=== PATIENT | male | born 1930 | race Caucasian/White ===

== ENCOUNTER 2017-01-08 14:01 | Inpatient (IN) | payer MEDICARE, OTHER ==
[~2017-01-08] VITALS: Ht 180.3 cm; Wt 81.5 kg
[~2017-01-08 14:01] MED LIST: CALC-494 PO; FINA5TAB30 PO; FISH1CAP47 PO; GABA300T23 PO; LEVO150T69 PO; LYCOPENE PO; METO5TAB58 PO; OMEP20TA24 PO; PRIM50TA27 PO; PYRI60TA PO
[2017-01-08] MEDS ORDERED: GABA-336 PO (14:30)
--- NOTE | 2017-01-08 14:30 | NUR ---
PHYSICIAN VISIT DR. HWANG IN TO SEE PATIENT.
[2017-01-08] MEDS ORDERED: CALC-946 PO (14:35)
[2017-01-08] MEDS ORDERED: CA C1TAB98 PO (14:35)
[2017-01-08] MEDS ORDERED: FISH1CAP59 PO (14:35)
[2017-01-08] MEDS ORDERED: LYCO10CA3 PO (14:37)
[2017-01-08] MEDS ORDERED: SAW450CA4 PO (14:37)
--- NOTE | 2017-01-08 14:41 | ERPDOC ---
Departure Disposition Decision Date: Jan 08, 2017 Disposition Decision Time: 16:10 Disposition: 02 TO [facility] Impression Impression Impression: Primary Impression: Weakness Severity: Moderate Condition: Improved Seen By: Physician only Referrals: LEWIS DEL REAL MD (Family) Problems/Meds/Labs Reviewed?: Yes Medications reviewed and manag: Yes Follow up care ordered?: Yes Mental Status: Alert, Oriented HPI - General Medical General Chief Complaint: Weakness/Neuro Symptoms Stated Complaint: WEAKNESS Time Seen by Provider: 14:16 Source: patient (Patient presents to the ER following a possible syncopal episode or TIA at home. Patient states he was working in his garage, when he became weak, laid down on the Garage floor, and was too wek to get up. Patient states he felt weaker on his left side. He believes this all began at approx 10:30 this morning, but is unsure of the exact time. Patient arrives in ther ER feeling weak, but without focal deficits. ) Exam Limitations: no limitations HPI - General Medical Occurred At: home Onset: Changing over time Duration: 4-6 hrs Pain Scale: Now & Worst: 0/10 Severity: mild Modifying Factors: IMPROVES WITH: other, WORSE WITH: movement Associated Symptoms: malaise, DENIES: chest pain, cough, diaphoresis, fever/ chills, headaches, loss of appetite, nausea/vomiting, rash, seizure, shortness of breath, syncope, weakness Hx of Similar Symptoms: Yes Allergies: Coded Allergies: Ynnkoug-Bml-Atg Reductase Inhibitor (Verified Allergy, Unknown, LEG MUSCLE WEAKNESS, 01/08/17) rosuvastatin (Verified Allergy, Unknown, 01/08/17) Past History Past Medical History Metabolic: hypercholesterolemia, hypertension, hypothyroidism GI: GERD, ulcers Musculoskeletal: back pain, other Surgical History General: exploratory laparotomy, hernia Cardiac: pacemaker Family History Family PMH: FOUND: other Vaccines Hx Influenza Vaccination: Yes (FALL 2012) Hx Pneumococcal Vaccination: Yes (fall 2012) Social History Smoking Status: Never smoker Does patient use chewing tobac: No Second Hand Exposure: No Substance Use Type: does not use Alcohol Intake: none Marital Status: Sexuality: female partner Housing: house Household Members: spouse Current Occupational Status: retired Occupational Hazard: No Record Review Pertinent history updated: Yes Review of Systems Constitutional Constitutional: DENIES: chills, fever Eyes Lids/Accessories: DENIES: erythema, swelling ENMT Ears: DENIES: erythema, pain Balance: DENIES: ataxia, vertigo Sinuses: DENIES: congestion, rhinorrhea Mouth/Throat: DENIES: sore throat Cardiovascular Cardiac: DENIES: chest pain, dyspnea on exertion, orthopnea Rhythm/Rate: DENIES: tachycardia Pulmonary Respiratory: DENIES: cough, dyspnea, sputum GI Upper Abdomen: DENIES: nausea, pain, vomiting Lower Abdomen: DENIES: constipation, diarrhea, pain General: DENIES: dysuria Musculoskeletal General: DENIES: cramps, pain, weakness Integumentary Skin: DENIES: color change, itching, rash Neurological General: DENIES: change in strength, headache, numbness, seizures, syncope, weakness Psychiatric Psychiatric: DENIES: anxiety, depression, nervousness Hematologic/Lymphatic Hematologic/Lymphatic: DENIES: anemia Allergic/Immunological Allergic/Immunoligical: DENIES: sneezing All other Systems All Other Systems: Reviewed and Negative Physical Exam General General Nourishment: well nourished, well developed, appears stated age, adult General Body Habitus: well groomed Vitals and Pain First Documented Vital Signs Date Time Temp Pulse Resp B/P Pulse Ox O2 Delivery O2 Flow Rate FiO2 01/08/17 14:04 97.6 78 16 159/72 94 Room Air Weight: Kilograms: 80.700 Height (feet): 5 Height (inches): 11.00 Triage Pain Scale: RN VS reviewed by Provider: Yes Eyes (brief) Eyes Brief: found: EOMI, PERRL ENMT (brief) ENMT Brief: FOUND: TM clear, TM good light reflex, mucosa moist, NOT FOUND: pharnyx erythema Neck (brief) Neck: FOUND: trachea midline, NOT FOUND: adenopathy, nuchal rigidity, tenderness, tracheal deviation Respiratory (brief) Respiratory: FOUND: clear all rose, equal bilaterally Cardiovascular (brief) Cardiac: FOUND: regular rate, regular rhythm Capillary Refill: <2 sec Pulses: all distal extremities, equal, strong Abdomen (brief) Abdominal Brief: FOUND: bowel normo active x4, soft, NOT FOUND: distended, tender Lymphatic (brief) Lymphatic Brief: NOT FOUND: adenopathy Musculoskeletal (brief) Musculoskeletal Brief: NOT FOUND: spasm, tenderness Integumentary (brief) Integumentary Brief: FOUND: pink, warm Neurologic (brief) Neurological Brief: FOUND: CN w/o gross def to obs, motor-no gross deficits, sensory-no gross deficits Psychiatric (brief) Psychiatric Brief: FOUND: alert, attentive, normal affect, oriented Differential Diagnoses Considering: Acute ND, CVA, Encephalitis, Hypo/Hyperglycemia, Hypo/Hyperkalemia , Hypo/Hypernatremia, Intracranial Hemorrhage, Medication Effect, Meningitis, Metabolic, Pneumonia, TIA, UTI, Other Progress Results/Orders Orders Procedure Category Date Status Time Iv Lock (Ed Only) EDM 01/08/17 Transmitted 14:35 Bgm (Ed) EDM 01/08/17 Transmitted 14:35 Cbc W/Auto LAB 01/08/17 Complete Diff-Reflex Manual 14:35 Cmp - Comprehensive LAB 01/08/17 Complete Metabolic 14:35 Troponin I W LAB 01/08/17 Complete Hemolysis Index 14:35 INR LAB 01/08/17 Complete 14:35 PTT LAB 01/08/17 Complete 14:35 EKG EKG 01/08/17 Logged 14:35 Ct Head W/O Contrast CT 01/08/17 Resulted 14:35 Measure Vital Signs [facility] 01/08/17 In Process 14:35 Ua, Dip Wreflex LAB 01/08/17 Logged [employer] 14:35 Orthostatic Vitals [facility] 01/08/17 In Process Signs 14:35 Normal Saline (Ns) PHA 01/08/17 Complete 14:45 Chest 1 View RAD 01/08/17 Resulted Lab Results Laboratory Tests Test 01/08/17 14:39 01/08/17 15:13 01/08/17 16:04 Glucometer 100mg/dL White Blood Count 13.0T/MM3 Red Blood Count 4.91M/MM3 Hemoglobin 15.2GM/DL Hematocrit 45.6% Mean Corpuscular Volume 92.9UM3 Mean Corpuscular Hemoglobin 31.0UUG Mean Corpuscular Hemoglobin Concent 33.3GM/DL RDW Standard Deviation 42.3FL Platelet Count 161T/MM3 Mean Platelet Volume 9.3UM3 Immature Granulocyte % (Auto) 0.5% Neutrophils (%) (Auto) 82.9% Lymphocytes (%) (Auto) 9.1% Monocytes (%) (Auto) 6.6% Eosinophils (%) (Auto) 0.7% Basophils (%) (Auto) 0.2% Absolute Immature Granulocyte (auto 0.07T/MM3 Absolute Neutrophils (auto) 10.8T/MM3 Absolute Lymphocytes (auto) 1.2T/MM3 Absolute Monocytes (auto) 0.9T/MM3 Absolute Eosinophils (auto) 0.1T/MM3 Absolute Basophils (auto) 0.0T/MM3 Prothromb Time International Ratio 1.07 Activated Partial Thromboplast Time 25.6SEC Turbidity < 20 Sodium Level 147MEQ/L Potassium Level 4.2MEQ/L Chloride Level 108MEQ/L Carbon Dioxide Level 27MEQ/L Anion Gap 12MEQ/L Blood Urea Nitrogen 16.0MG/DL Creatinine 0.9MG/DL Glomerular Filtration Rate Calc 80 BUN/Creatinine Ratio 18RATIO Glucose Level 97MG/DL Calculated Osmolality 283MOSM/KG Calcium Level 10.1MG/DL Total Bilirubin 0.80MG/DL Icterus Index < 2 Aspartate Amino Transf (AST/SGOT) 72U/L Alanine Aminotransferase (ALT/SGPT) 42U/L Alkaline Phosphatase 59U/L Troponin I 0.098ng/ml Total Protein 7.7G/DL Albumin 4.0G/DL Globulin 3.7G/DL Albumin/Globulin Ratio 1.1RATIO Chemistry Specimen Hemolysis 39 Urine Collection Type Pending Urine Color Pending Urine Turbidity Pending Urine pH Pending Urine Specific [place] Pending Urine Protein Pending Urine Glucose (UA) Pending Urine Ketones Pending Urine Blood Pending Urine Nitrite Pending Urine Bilirubin Pending Urine Urobilinogen Pending Urine Leukocyte Esterase Pending Medications Current ED Medications Sodium Chloride (NS) 500 ml @ 0 mls/hr Q0M ONCE IV Last administered on 14:59; Start 01/08/17 at 14:45; Stop 01/08/17 at 14:46; Status DC Progress Progress Patient resting comfortably without focal deficits EKG EKG : Rate: 60-100 Rhythm: ventricular (Paced) QRS: other Intervals: other ST/T: other Other: other Interpreted by: signing physician EKG ScImage/Picomm EKG interpreted in ScImage/Pic: No Consult/PCP Consult/PCP : Physician Contacted: Dr Sarmiento Time Called: 16:10 Time of first response: 16:14 Type of discussion: Admit Discussion/PCP Discussion Details Discussed patient history, labs and imaging Comments Admit OBS 1/2 NS at 100ml/hr Tele Xray Xray : Reason for Exam: Weakness Xray: CXR Portable Interpretation: Normal, Reviewed Written Report CT Date CT Interpreted for [place]: Jan 08, [address] Interpreted for Stroke: 15:46 CT : Reason for Exam: Altered mental status CT: Head no contrast Interpretation: Normal, Reviewed Written Report AMY HWANG DO Jan 08, 2017 14:41
[2017-01-08] MEDS ORDERED: NORMAL SALINE 500 ML IV ONE (14:45)
--- NOTE | 2017-01-08 15:15 | NUR ---
X-RAY X-RAY AT BEDSIDE TO PERFORM PORTABLE CHEST.
[2017-01-08 15:19] LABS: BASOPHILS % (AUTO) 0.2 % (0-2); EOSINOPHILS # (AUTO) 0.1 T/MM3 (0-0.5); EOSINOPHILS % (AUTO) 0.7 % (0-4); HCT - HEMATOCRIT 45.6 % (41-53); HGB - HEMOGLOBIN 15.2 GM/DL (13.5-17.5); IMMATURE GRANULOCYTE # (AUTO) 0.07 T/MM3 (0.00-0.03); IMMATURE GRANULOCYTE % (AUTO) 0.5 % (0.0-0.5); LYMPHOCYTES # (AUTO) 1.2 T/MM3 (1-4.8); LYMPHOCYTES % (AUTO) 9.1 % (23-45); MEAN CORPUSCULAR HGB CONC(MCHC 33.3 GM/DL (31-37); MEAN CORPUSCULAR VOLUME 92.9 UM3 (80-100); MEAN PLATELET VOLUME 9.3 UM3 (9.4-12.4); MONOCYTES # (AUTO) 0.9 T/MM3 (0-0.8); MONOCYTES % (AUTO) 6.6 % (0-9.0); NEUTROPHILS #(AUTO)-ABSOLUTE 10.8 T/MM3 (1.8-7.7); NEUTROPHILS % (AUTO) 82.9 % (33-66); RED BLOOD COUNT 4.91 M/MM3 (4.50-5.90)
[2017-01-08 15:27] LABS: INR 1.07 (0.76-1.04); PROTHROMBIN TIME 11.7 SEC (9.31-12.49); PTT 25.6 SEC (24-36)
[2017-01-08 15:29] LABS: ALBUMIN/GLOBULIN RATIO 1.1 RATIO (1.1-2.2); ALKALINE PHOSPHATASE 59 U/L (38-126); ALT (SGPT) 42 U/L (21-72); ANION GAP 12 MEQ/L (5-15); AST (SGOT) 72 U/L (17-59); BUN/CREATININE RATIO 18 RATIO (6-26); CALCIUM 10.1 MG/DL (8.4-10.2); CHLORIDE 108 MEQ/L (98-107); CO2 - CARBON DIOXIDE 27 MEQ/L (22-30); CREATININE 0.9 MG/DL (0.8-1.5); GLOMERULAR FILTRATION RATE 80; GLUCOSE 97 MG/DL (75-110); POTASSIUM 4.2 MEQ/L (3.6-5); SODIUM 147 MEQ/L (134-144); TOTAL PROTEIN 7.7 G/DL (6.3-8.2)
--- NOTE | 2017-01-08 15:32 | NUR ---
CT TRANSPORTED TO CT VIA STRETCHER PER MOLDER FITTING.
--- NOTE | 2017-01-08 15:32 | DI ---
Indication: ITS.REASON: weakness PROCEDURE: CHEST 1 VIEW: Encounter: Initial Comparison: None Findings: There is some linear atelectasis or scarring in the left lung base. Heart size is normal. No lobar consolidation or pleural effusion. No mediastinal or hilar adenopathy.. There is moderate tortuosity of the descending thoracic aorta. There is moderate degenerative changes of the thoracic spine.There is a left subclavian dual lead pacemaker in place. IMPRESSION: Left basilar atelectasis and/or scarring. No definite lobar consolidation or pleural effusion.. .
--- NOTE | 2017-01-08 15:45 | NUR ---
RETURNED RETURNED FROM CT.
--- NOTE | 2017-01-08 15:50 | DI ---
Indication: ITS.REASON: altered mental status PROCEDURE: CT HEAD W/O CONTRAST: Encounter: Initial Comparison: None Technique: Axial CT images through the head were performed without contrast. Iterative Reconstruction dose reducing technique was utilized. FINDINGS: The ventricles are of normal size, shape, and contour for the patient's age. There are scattered areas of low attenuation in the white matter which most likely represent changes from chronic microvascular ischemia. The brainstem, cerebellum, and cerebral hemispheres otherwise have a normal morphology and CT attenuation. There is no evidence of midline displacement. No hemorrhage, signs of acute territorial stroke, mass effect, mass lesions, or edema is evident. The visualized portions of the skull base, midface, and calvarium demonstrate no abnormality. The paranasal sinuses are well aerated and free of significant disease. The tympanic and mastoid cavities appear normal. IMPRESSION: No evidence for intracranial mass lesion, mass effect, or midline shift. No evidence for acute cortical infarct. No intracranial hemorrhage. .
--- NOTE | 2017-01-08 16:00 | NUR ---
URINE SPECIMEN URINE SPECIMEN COLLECTED, LABELED, AND WALKED TO LAB BY THIS NURSE.
[2017-01-08] MEDS ORDERED: 1/2 NS 1,000 ML IV SCH (16:15)
--- NOTE | 2017-01-08 16:16 | NUR ---
ADMISSION CALLED [facility], MEDICAL FLOOR CHARGE FOR BED ASSIGNMENT. PATIENT TO BE ADMITTED TO ROOM 160. WOLF CAMPBELL TO TAKE REPORT AT EXTENSION [id number].
[2017-01-08 16:20] LABS: BLOOD, URINE 3+ (NEGATIVE); COLOR,URINE YELLOW (YELLOW); LEUKOCYTE ESTERASE ,URINE NEGATIVE (NEGATIVE); NITRITE,URINE NEGATIVE (NEGATIVE); UROBILINOGEN,URINE 0.2 EU/DL (NORMAL)
--- NOTE | 2017-01-08 16:20 | NUR ---
REPORT REPORT CALLED TO WOLF CAMPBELL, MEDICAL UNIT.
--- NOTE | 2017-01-08 16:25 | NUR ---
ADMISSION UPDATE HOSPITALIST BRAKE LINING FINISHER AT BEDSIDE ASSESSING PATIENT. WILL TRANSPORT PATIENT WHEN BRAKE LINING FINISHER FINISHED.
[2017-01-08 16:29] LABS: MUCUS,URINE PRESENT
[2017-01-08 16:31] LABS: BACTERIA,URINE 1+ (NEGATIVE); SQUAMOUS EPITHELIAL CELL,UR NONE SEEN; WBC,URINE 0-1 /HPF (0-5)
--- NOTE | 2017-01-08 16:40 | NUR ---
ADMIT PT ADMITTED TO ROOM 160. PT ALERT AND ORIENTED X3. TRANSFER WITH STAND PIVOT TO BED FROM CART. PT FRIENDLY AND COOPERATIVE WITH STAFF. NEURO CHECK NORMAL AT THIS TIME. EQUAL STRENGTH IN ALL EXTREMITIES. ALL SENSATIONS INTACT. NO EDEMA NOTED. EDUCATED ON HOSPITAL ENVIRONMENT. EDUCATED FAMILY HEALTH NURSE PRACTITIONER LIGHT. AT BEDSIDE
[2017-01-08 16:43] VITALS: Ht 180.3 cm; Wt 81.5 kg
[2017-01-08 16:45] VITALS: BP 195/83; PULSE 75; RESP 20; O2SAT 94
[2017-01-08 16:59] VITALS: BP 135/69; TEMP 97.6
[2017-01-08] MEDS ORDERED: MILK OF MAGNESIA 30 ML SUSP PO PRN (17:00)
[2017-01-08] MEDS ORDERED: MAG-AL + SIM LIQUID 30 ML UDC PO PRN (17:00)
[2017-01-08] MEDS ORDERED: NITROGLYCERIN 0.4 MG SUBLINGUAL TABLET SL PRN (17:00)
[2017-01-08] MEDS ORDERED: BISACODYL 10 MG SUPPOSITORY RECTALLY PRN (17:00)
[2017-01-08] MEDS ORDERED: PRN ORDERS MC (17:00)
[2017-01-08] MEDS ORDERED: ONDANSETRON 4mg/2ml INJECTION IV PRN (17:00)
--- NOTE | 2017-01-08 17:19 | HPPDOC ---
MARK MCCULLOUGH APRN 01/08/17 1646: HPI - Adult Date DATE: 01/08/17 TIME: 16:39 General Chief Complaint: Weakness History of Present Illness Nicola Austin is an 86 year old male who was working on a lawnmower, became weak and tired and believes he just laid down. He doesn't think he passed out and denies falling, but his recollection of what actually occurred is not certain. He has never had a seizure. He was not incontinent of bowel/bladder. He was down on the ground for 1.5 hours, and despite trying to get up, was unable to. He mostly rested on his left arm, and now is weak on that side. He had his annual bout of "bronchitis" now those symptoms are resolved and he denies any other recent illness. He has myasthenia gravis, but denies any difficulty breathing, dysphagia, or vision abnormalities. He has chronic leg weakness, attributed to taking crestor then lipitor. He does not take ASA because of GI bleed in 2007. His returned from work around noon, and found him on the ground. He was transferred to [facility] [place] ED. WBC was 13, Na was high at 147; UA was consistent with dehydration. He did receive 500 mL NS in the ED. Head CT was negative for acute infarct or hemorrhage. CXR showed left basilar atelectasis and/or scarring. EKG showed paced rhythm. Given concerns for stroke, the patient was admitted to observation status under the hospitalist service. Past Medical History Past Medical History Patient's Medical History: (1) Hypercholesteremia (2) Myasthenia gravis (3) Hypothyroidism (4) HTN (hypertension) (5) Essential tremor (6) Duodenal stenosis (7) Atrial fibrillation (8) Bleeding ulcer Permanent Comment: 2007 Last Edited By: Mark Mccullough on Jan 08, 2017 16:51 Surgical History Patient's Surgical History: EGD in 2007 - bleeding duodenal ulcer Pacemaker Cardioversion for a-fib Cataracts (left in 1999, right 1995) Right inguinal hernia in 1968 Colonoscopy last one in 2011, benign colon polyps Current Medications Home Meds Reported Medications Saw Sherwood Fruit (Saw Sherwood) 450 Mg Capsule, 900 MG PO HS 01/08/17 Lycopene (Lycopene) 10 Mg Capsule, 10 MG PO HS 01/08/17 Cholecalciferol (Vitamin D3) (Vitamin D3) 5,000 Unit Tablet, 5000 UNIT PO HS 01/08/17 Ca Carbonate/Vitamin D3/Vit K (Citracal Soft Chew) 1 Each Tab.chew, 1 TAB PO BID 01/08/17 Fish Oil/Dha/Epa (Fish Oil 1,200 mg Fish Oil) 1 Each Capsule, 1200 MG PO QID 01/08/17 Gabapentin (Gabapentin) 100 Mg Capsule, 100 MG PO BID 01/08/17 Finasteride (Proscar) 5 Mg Tablet, 5 MG PO HS 01/28/11 Pyridostigmine [place] (Pyridostigmine [place]) 60 Mg Tablet, 60 MG PO DAILY 08/16/09 Primidone (Primidone) 50 Mg Tablet, 50 MG PO BID 08/16/09 Omeprazole (Prilosec) 20 Mg Tablet.dr, 20 MG PO DAILY 08/16/09 Metoclopramide Hcl (Metoclopramide Hcl) 5 Mg Tablet, 5 MG PO HS 08/16/09 Levothyroxine Sodium (Levothyroxine Sodium) 150 Mcg Tablet, 150 MCG PO HS 08/16/09 Allergies: Coded Allergies: Ptwklqh-Ggz-Hqq Reductase Inhibitor (Verified Allergy, Unknown, LEG MUSCLE WEAKNESS, 01/08/17) rosuvastatin (Verified Allergy, Unknown, 01/08/17) aspirin (Verified Adverse Reaction, Unknown, 01/08/17) due to a bleeding ulcer Family History Family History: Father at age 90, unknown cause. Mother at age 50, unknown cause. Sister in her early 80s - hx of diabetes. Younger brother has back problems and has had cancer. Social History Smoking Status: Never smoker Does patient use chewing tobac: No Second Hand Exposure: No Substance Use Type: does not use Alcohol Intake: none Marital Status: Sexuality: female partner Housing: house Household Members: spouse Current Occupational Status: retired Occupational Hazard: No Advance Directives: Yes DPOA for Healthcare Only, Yes Living Will Review of Systems Constitutional: REPORTS: weakness, DENIES: appetite decrease, chills, fever Eyes Vision: DENIES: vision changes ENMT Sinuses: NOT FOUND: congestion, rhinorrhea Mouth/Throat: DENIES: change in swallowing, painful swallowing, sore throat Comments tiny abrasion to right side of tongue - pt wasn't sure what happened but he believes he bit his tongue Cardiovascular DENIES: chest pain, dyspnea on exertion Vascular: DENIES: pedal edema Pulmonary Respiratory: DENIES: cough, dyspnea GI Upper Abdomen: DENIES: nausea, pain, vomiting Lower Abdomen: DENIES: constipation, diarrhea General: DENIES: dysuria, frequency, incontinence Musculoskeletal General: DENIES: joint swelling, pain Integumentary Skin: DENIES: infections, rash Neurological General: see HPI, weakness Psychiatric Psychiatric: DENIES: depression Hematologic/Lymphatic DENIES: anemia Allergic/Immunological DENIES: frequent infections All Other Systems All Other Systems: Reviewed (remainder of 10-point ROS Neg.) Physical Exam General General Nourishment: well nourished, well developed General Body Habitus: well groomed Vital Signs Vital Signs Date Time Temp Pulse Resp B/P Pulse Ox O2 Delivery O2 Flow Rate FiO2 01/08/17 16:16 60 16 177/76 98 Room Air 01/08/17 14:04 97.6 Height (Feet): 5 Height (Inches): 11.00 Eyes Brief: FOUND: PERRL, NOT FOUND: scleral icterus ENMT Brief: NOT FOUND: mucosa moist (sligghtly dry), pharnyx erythema Neck Brief: NOT FOUND: adenopathy, nuchal rigidity Respiratory Auscultation: FOUND: normal, NOT FOUND: rales, rhonchi, wheezes Cardiovascular Auscultation: FOUND: S1, S2, regular Peripheral Pulses: 2+: Dorasalis Pedis (L), Dorsalis Pedis (R), Posterior Tibial (L), Posterior Tibial (R), Radial (L), Radial (R) Edema: 0: Anasarca, Arm (L), Arm (R), Face, Leg (L), Leg (R) Abdomen Inspection: NOT FOUND: distention Palpation: FOUND: soft, NOT FOUND: McBurney's point tender, Iqbal's sign, involuntary guarding, rebound, tender, voluntary guarding Auscultation: FOUND: normo active Lymphatic (brief) Lymphatic Brief: NOT FOUND: adenopathy Integumentary (brief) Integumentary Brief: FOUND: dry, warm Integumentary General: FOUND: dry, warm Color: FOUND: pink Neurologic (brief) Neurological Brief: FOUND: cerebellar (intact alternating fingers), cranial 2- 12 intact (grossly), motor (left deltoid, bicep and tricep 4/5 compared to 5/5 on right. +Pronator drift on left.), sensory (intact to light touch), NOT FOUND : facial droop, ptosis Comments B/L nystagmus, worse when he looked towards the left Neurologic GCS Eye Opening: (4)Spontaneous GCS Verbal: (5)Oriented GCS Motor: (6)Obeys Commands RN Documented GCS Total: 15 Psychiatric (brief) FOUND: alert, attentive, normal affect, oriented Laboratory Laboratory Tests Test 01/08/17 14:39 01/08/17 15:13 01/08/17 16:04 Glucometer 100mg/dL White Blood Count 13.0T/MM3 Red Blood Count 4.91M/MM3 Hemoglobin 15.2GM/DL Hematocrit 45.6% Mean Corpuscular Volume 92.9UM3 Mean Corpuscular Hemoglobin 31.0UUG Mean Corpuscular Hemoglobin Concent 33.3GM/DL RDW Standard Deviation 42.3FL Platelet Count 161T/MM3 Mean Platelet Volume 9.3UM3 Immature Granulocyte % (Auto) 0.5% Neutrophils (%) (Auto) 82.9% Lymphocytes (%) (Auto) 9.1% Monocytes (%) (Auto) 6.6% Eosinophils (%) (Auto) 0.7% Basophils (%) (Auto) 0.2% Absolute Immature Granulocyte (auto 0.07T/MM3 Absolute Neutrophils (auto) 10.8T/MM3 Absolute Lymphocytes (auto) 1.2T/MM3 Absolute Monocytes (auto) 0.9T/MM3 Absolute Eosinophils (auto) 0.1T/MM3 Absolute Basophils (auto) 0.0T/MM3 Prothromb Time International Ratio 1.07 Activated Partial Thromboplast Time 25.6SEC Turbidity < 20 Sodium Level 147MEQ/L Potassium Level 4.2MEQ/L Chloride Level 108MEQ/L Carbon Dioxide Level 27MEQ/L Anion Gap 12MEQ/L Blood Urea Nitrogen 16.0MG/DL Creatinine 0.9MG/DL Glomerular Filtration Rate Calc 80 BUN/Creatinine Ratio 18RATIO Glucose Level 97MG/DL Calculated Osmolality 283MOSM/KG Calcium Level 10.1MG/DL Total Bilirubin 0.80MG/DL Icterus Index < 2 Aspartate Amino Transf (AST/SGOT) 72U/L Alanine Aminotransferase (ALT/SGPT) 42U/L Alkaline Phosphatase 59U/L Troponin I 0.098ng/ml Total Protein 7.7G/DL Albumin 4.0G/DL Globulin 3.7G/DL Albumin/Globulin Ratio 1.1RATIO Chemistry Specimen Hemolysis 39 Urine Collection Type Cleancatch-midstream Urine Color Yellow Urine Turbidity Clear Urine pH 5.0 Urine Specific [place] >=1.030 Urine Protein 1+ Urine Glucose (UA) Negative Urine Ketones 1+ Urine Blood 3+ Urine Nitrite Negative Urine Bilirubin Negative Urine Urobilinogen 0.2EU/DL Urine Leukocyte Esterase Negative Urine RBC 1-3/HPF Urine WBC 0-1/HPF Urine Squamous Epithelial Cells None seen Urine Amorphous Urates Few Urine Bacteria 1+ Urine Hyaline Casts 3-5/LPF Urine Mucus Present Urine Culture Indicated Cult not indicated Assessment & Plan Problems: (1) Weakness Status: Acute Assessment & Plan: R/O stroke (2) Hypernatremia Status: Acute (3) Myasthenia gravis Status: Chronic (4) Hypercholesteremia Status: Chronic Assessment & Plan: Cannot tolerate Crestor or Lipitor - cause severe muscle weakness (5) Atrial fibrillation Status: Resolved Assessment & Plan: hx of cardioversion (6) Bleeding ulcer Status: Resolved Assessment & Plan: duodenal bleeding ulcers in 2002 and 2007 - instructed not to take ASA (7) Hypothyroidism Status: Chronic Qualifiers: Hypothyroidism type: acquired Qualified Codes: E03.9 - Hypothyroidism, unspecified (8) HTN (hypertension) Status: Chronic Qualifiers: Hypertension type: essential hypertension Qualified Codes: I10 - Essential (primary) hypertension (9) Essential tremor Status: Chronic Plan/Intensity of Service Admit to observation status under the hospitalist service. R/O stroke; other differential dx include syncope, seizure, myasthenia exacerbation - carotid dopplers, echocardiogram. MRI brain - unable to obtain ( pacemaker not compatible). Order TSH and lipid panel (though cannot tolerate statin). ASA contraindicated d/t severe hx of GI bleeding. Consult PT/OT/ST. Dehydration with hypernatremia - he received NS 500 mL in ED. Will start 1/2 NS at 100 ml/hr. Hematuria - check CK to r/o rhabdomyolysis. Consider IVIG (2g/kg over 2-5 days) for myasthenia gravis exacerbation if symptoms do not improve. Code status - he would consider DNR, but wants to think about it. Full code at this time. PCP - Dr. Godwin/Heron Corcorna. Discussed with Dr. Sarmiento. DVT Prophylaxis: SCD'S Code Status Full Code Hospital Course Summary Disclaimer The hospital course summary below is not to be considered part of the above Progress Note. Hospital Course Summary 01/08/17 Admit to observation status under the hospitalist service. R/O stroke; other differential dx include syncope, seizure, myasthenia exacerbation - carotid dopplers, echocardiogram. MRI brain - unable to obtain ( pacemaker not compatible).Order TSH and lipid panel (though cannot tolerate statin). ASA contraindicated d/t severe hx of GI bleeding. Consult PT/OT/ST. Dehydration with hypernatremia - he received NS 500 mL in ED. Will start 1/2 NS at 100 ml/hr. Hematuria - check CK to r/o rhabdomyolysis. Consider IVIG (2g/kg over 2-5 days) for myasthenia gravis exacerbation if symptoms do not improve. Code status - he would consider DNR, but wants to think about it. Full code at this time. SON SARMIENTO MD 01/08/17 1842: Past Medical History Current Medications Home Meds Reported Medications Saw [place]wood Fruit (Saw Sherwood) 450 Mg Capsule, 900 MG PO HS 01/08/17 Lycopene (Lycopene) 10 Mg Capsule, 10 MG PO HS 01/08/17 Cholecalciferol (Vitamin D3) (Vitamin D3) 5,000 Unit Tablet, 5000 UNIT PO HS 01/08/17 Ca Carbonate/Vitamin D3/Vit K (Citracal Soft Chew) 1 Each Tab.chew, 1 TAB PO BID 01/08/17 Fish Oil/Dha/Epa (Fish Oil 1,200 mg Fish Oil) 1 Each Capsule, 1200 MG PO QID 01/08/17 Gabapentin (Gabapentin) 100 Mg Capsule, 100 MG PO BID 01/08/17 Finasteride (Proscar) 5 Mg Tablet, 5 MG PO HS 01/28/11 Pyridostigmine [place] (Pyridostigmine [place]) 60 Mg Tablet, 60 MG PO DAILY 08/16/09 Primidone (Primidone) 50 Mg Tablet, 50 MG PO BID 08/16/09 Omeprazole (Prilosec) 20 Mg Tablet.dr 20 MG PO DAILY 08/16/09 Metoclopramide Hcl (Metoclopramide Hcl) 5 Mg Tablet, 5 MG PO HS 08/16/09 Levothyroxine Sodium (Levothyroxine Sodium) 150 Mcg Tablet, 150 MCG PO HS 08/16/09 Allergies: Coded Allergies: Iokpfmm-Lvx-Bxz Reductase Inhibitor (Verified Allergy, Unknown, LEG MUSCLE WEAKNESS, 01/08/17) rosuvastatin (Verified Allergy, Unknown, 01/08/17) aspirin (Verified Adverse Reaction, Unknown, 01/08/17) due to a bleeding ulcer Assessment & Plan Problems: (1) Rhabdomyolysis Status: Acute Qualifiers: Rhabdomyolysis type: traumatic Encounter type: initial encounter Qualified Codes: T79.6XXA - Traumatic ischemia of muscle, initial encounter Assessment & Plan: Secondary to being down on concrete for extended period of time. (2) Weakness Status: Acute Assessment & Plan: R/O stroke. Possible MG exacerbation. (3) Hypernatremia Status: Acute Assessment & Plan: POA (4) Myasthenia gravis Status: Chronic (5) HTN (hypertension) Status: Chronic Qualifiers: Hypertension type: essential hypertension Qualified Codes: I10 - Essential (primary) hypertension (6) Hypercholesteremia Status: Chronic Assessment & Plan: Cannot tolerate Crestor or Lipitor - cause severe muscle weakness (7) Hypothyroidism Status: Chronic Qualifiers: Hypothyroidism type: acquired Qualified Codes: E03.9 - Hypothyroidism, unspecified (8) Essential tremor Status: Chronic (9) Atrial fibrillation Status: Resolved Assessment & Plan: hx of cardioversion (10) Bleeding ulcer Status: Resolved Assessment & Plan: Hx of duodenal bleeding ulcers in 2002 and 2007 - instructed not to take ASA Hospital Course Summary Hospital Course Summary Have independently interviewed and examined pt. Chart reviewed. Case discussed with ED provider and my ATOMIC PHYSICS TEACHER. Care plan developed with my supervision; agree with above. CC: Weakness. HPI: At home, working on crabber. Laying on concrete to grease the zerks. When tried to get up, found he was too weak to get on feet. 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 return after he had been down for about 1.5 hours. Hard to get him up. Left shoulder and ab sore from attempts to get up. Not eaten anything since breakfast this morning. No nausea. No loose of bowel/bladder function. Breathing stable. No chest pain. No recent viral syndrome. Lungs: clear CV: regular AB; soft nt/nd +BS MSE: awake alert appropriate Neuro: diffuse weakness of upper ext bilaterally. Plan: OBS. IVF for hydration - with elevated CPK and Rhabdo, will change IVF to D5W with 2 amps of sodium Bicarb. MRI precluded due to pacemaker. PT/OT/Speech eval. SCD. Monitor CPK and renal function. Recheck BMP in am due to hypernatremia and rhabdo. Potentially needing IVIG if weakness not improving with hydration and normalization of CPK. MARK MCCULLOUGH ATOMIC PHYSICS TEACHER Jan 08, 2017 16:46 SON SARMIENTO MD Jan 08, 2017 18:42
[2017-01-08 17:31] VITALS: PULSE 60; RESP 16
[2017-01-08 18:11] LABS: THYROID STIM HORMONE-TSH 0.02 MIU/L (0.47-4.68)
[2017-01-08] MEDS: SODIUM BICARB IV SCH (18:35)
[2017-01-08] MEDS: D5W IV SCH (18:35)
[2017-01-08 20:00] VITALS: BP 132/62; PULSE 60; PULSE 62; RESP 18; TEMP 98; O2SAT 95
[2017-01-08] MEDS: GABAPENTIN 100 MG PO SCH (20:10)
[2017-01-08] MEDS: PRIMIDONE 50 MG PO SCH (20:10)
[2017-01-08] MEDS ORDERED: --POM--FINASTERIDE 5 MG TABLET PO SCH (22:00)
[2017-01-08] MEDS ORDERED: LEVOTHYROXINE 150 MCG PO SCH (22:00)
[2017-01-08] MEDS ORDERED: METOCLOPRAMIDE 5 MG PO SCH (22:00)
[2017-01-09] VITALS (7 sets, daily range): BP systolic 152–178; BP diastolic 67–74; PULSE 62–82; RESP 16–22; TEMP 97.5–98.3; O2SAT 93–95
[2017-01-09 02:33] LABS: LDL CHOLESTEROL,CALCULATED 172.4 (66-159); RISK FACTOR 6.8 RATIO (0-5.0); VLDL CHOLESTEROL 34.6 MG/DL (0-28)
[2017-01-09 05:14] LABS: BASOPHILS % (AUTO) 0.3 % (0-2); EOSINOPHILS # (AUTO) 0.2 T/MM3 (0-0.5); EOSINOPHILS % (AUTO) 2.4 % (0-4); HCT - HEMATOCRIT 39.4 % (41-53); IMMATURE GRANULOCYTE # (AUTO) 0.02 T/MM3 (0.00-0.03); IMMATURE GRANULOCYTE % (AUTO) 0.3 % (0.0-0.5); LYMPHOCYTES # (AUTO) 2.1 T/MM3 (1-4.8); LYMPHOCYTES % (AUTO) 26.6 % (23-45); MEAN CORPUSCULAR HGB 30.9 UUG (26-34); MEAN CORPUSCULAR VOLUME 93.6 UM3 (80-100); MEAN PLATELET VOLUME 9.1 UM3 (9.4-12.4); MONOCYTES # (AUTO) 0.6 T/MM3 (0-0.8); NEUTROPHILS #(AUTO)-ABSOLUTE 4.9 T/MM3 (1.8-7.7); NEUTROPHILS % (AUTO) 62.4 % (33-66); RED BLOOD COUNT 4.21 M/MM3 (4.50-5.90); WBC - WHITE BLOOD COUNT 7.9 T/MM3 (4.5-11.0)
[2017-01-09 05:24] LABS: ALBUMIN 3.2 G/DL (3.5-5.0); ALBUMIN/GLOBULIN RATIO 1.1 RATIO (1.1-2.2); ALKALINE PHOSPHATASE 47 U/L (38-126); ALT (SGPT) 61 U/L (21-72); ANION GAP 10 MEQ/L (5-15); AST (SGOT) 165 U/L (17-59); BUN/CREATININE RATIO 20 RATIO (6-26); CHLORIDE 102 MEQ/L (98-107); CO2 - CARBON DIOXIDE 31 MEQ/L (22-30); CREATININE 0.7 MG/DL (0.8-1.5); GLOMERULAR FILTRATION RATE 107; GLUCOSE 114 MG/DL (75-110); POTASSIUM 3.4 MEQ/L (3.6-5); SODIUM 143 MEQ/L (134-144)
--- NOTE | 2017-01-09 05:44 | NUR ---
Shift Pt awake most of the noc, has some urinary frequency and rib pain- declines pain medication. Neuro checks WNL, A/O x3.
[2017-01-09 05:58] LABS: CK - CPK 5898 U/L (55-170)
[2017-01-09] MEDS: SODIUM BICARB IV SCH (06:20)
[2017-01-09] MEDS: D5W IV SCH (06:20)
[2017-01-09] MEDS ORDERED: --POM--OMEPRAZOLE 20 MG CAPSULE PO SCH (06:30)
[2017-01-09] MEDS ORDERED: PYRIDOSTIGMINE 60 MG PO SCH (08:00)
[2017-01-09] MEDS: PRIMIDONE 50 MG PO SCH (08:19)
[2017-01-09] MEDS: GABAPENTIN 100 MG PO SCH (08:20)
--- NOTE | 2017-01-09 08:38 | DI ---
Indication: ITS.REASON: poss stroke PROCEDURE: US CAROTID DOPP COMPLETE: TECHNIQUE: Grayscale, color and duplex Doppler imaging was performed of the carotid systems bilaterally. Velocities in cm/sec - validated velocity measurements with angiographic measurements, velocity criteria are extrapolated from diameter data as defined by the Society of Radiologists in Ultrasound Consensus Conference Radiology 2003; 229;340-346. RIGHT: PSV ICA 80.5 EDV ICA 16 PSV CCA 145 EDV CCA 21 SVR 0.60 PSV ECA 199 ICA Diameter reduction 20-30% LEFT: PSV ICA 156 EDV ICA 31.8 PSV CCA 101 EDV CCA 14 SVR 0.80 PSV ECA 180 ICA Diameter reduction 50-60% The right vertebral artery is patent with cephalic flow. The left vertebral artery is patent with cephalic flow. Scattered atherosclerotic plaque in both carotid bulbs and throughout both ICAs. Common carotid intimal wall thickening bilaterally is moderate to severe. IMPRESSION: 50-60% stenosis in the left mid to distal ICA. No hemodynamically significant carotid stenosis on the right. .
--- NOTE | 2017-01-09 09:21 | STEVAL ---
Eval Subjective and History Date/Time of Eval DATE: 01/09/17 TIME: 08:50 Medical Diagnosis encephalopathy, r/o stroke Treatment Order: Assessment Orientations: Person, Place Primary Complaint: increased confusion, r/o stroke Pain: No Date of Onset of Primary Com: 01/08/17 Prior History of This Problem: No Patient's Goals: Return home Significant Past Medical Hx: Pt admitted to [facility] on 01/08/17 after developing weakness and laying on concrete floor for 1 1/2 hrs. Pt reported his left side was weak from laying on the floor. PMH: HTN, dyslipidemia, hypothyroidism, pulmonary HTN and DVT. Medical History Form Reviewed: Yes Residence Type: Private home/apartment Lives With: Spouse Caregiver Status: Yes (assists pt as needed) Prior Functional Status: Pt lived independently with his and was on a regular diet with no difficulty swallowing. Current Functional Status: Pt tolerated regular diet with set up, no s/s of aspiration. Education Subject: Diet, Swallowing Strategies Person(s) Educated: Patient Instruction Understanding Demo: Pt. verbalizes understand, Famly/Cargvr verb underst Education Comment METALLURGY LABORATORY TECHNICIAN educated patient on reasoning for evaluation. Patient was agreeable to evaluation. Subjective and History Comment: Pt was alert and cooperative during assessment. present for portion of assessment. Dysphagia Evaluation Evaluation Location: Chair Evaluation Angle: 90 Tongue Elevation: No Impairment (WFL) Tongue Lateralization: No Impairment (WFL) Tongue Protrusion: No Impairment (WFL) Tongue Retraction: No Impairment (WFL) Tongue Extension Midline: No Impairment (WFL) Labial Approximation: No Impairment (WFL) Volitional Cough: No Impairment (WFL) Palatal Elevation: No Impairment (WFL) Larynx Elevation During Swallo: Minimal Impairment Saliva Control: No Impairment (WFL) Oral Peripheral Exam Comment: Oral range of motion was within functional limits. Lip Seal: Adequate-liquid, Adequate-pudding, Adequate-solid Lingual Manipulation: Adequate-liquid (regular from a cup), Inadequate-liquid ( minimal difficulty w/straws), Adequate-pudding, Adequate-solid Chewing: Inadequate-solid (mild) Oral cavity clear post swallow: Adequate-liquid, Adequate-pudding, Adequate- solid Swallow initiated w/o delay: Adequate-liquid, Adequate-pudding, Adequate-solid Multiple swallows not needed: Adequate-liquid, Adequate-pudding, Adequate-solid Voice clear&dry post swallow: Adequate-liquid, Adequate-pudding, Adequate- solid (soft but dry) No cough/throat clear: Adequate-liquid, Adequate-pudding, Adequate-solid Assessment/Plan of Care Speech Therapy Impressions: Pt fed himself a regular diet with regular liquids with assistance opening packages, holding cup. Small cough noted after drinking thin liquids from a straw. Pt does not use straws at home. Mild tremor of upper extremities noted during evaluation. reported that the tremors have been present for a long time but vary in intensity. Pt verbalized needs and explained how he came to be in the hospital. Speech was soft but intelligible and appropriate to topic. Mild processing delay noted. Pt's reported that this if the norm for Mr. Austin. Recommend soft diet with chopped meat and regular liquid diet with swallow precautions. ST Treatment Plan: Swallow Precautions, Modified Diet, Evaluation Only ST Treatment Plan Frequency: N/A Treatment Plan Duration: N/A Recommended Diet: Soft diet/chopped meat and regular liquids Date of Visit 01/09/17 Time Visit Began: 08:30 Time Visit Ended: 09:05 ST Assess/Plan of Care: ST Treatment Charge: Swallow Eval Minutes of Individual Therapy: 35 AYESHA RAJAN MS CCC-METALLURGY LABORATORY TECHNICIAN Jan 09, 2017 08:53
--- NOTE | 2017-01-09 09:22 | NUR ---
Pt was seen for dysphagia evaluation. He fed himself regular diet and drank thin liquids from a cup with no s/s of aspiration. Speech was soft but intelligible and appropriate to topic. FINANCIAL DIRECTOR recommended soft diet/chopped meat and thin liquids with no straws as a swallow precaution. No skilled speech recommended at this time.
--- NOTE | 2017-01-09 11:50 | NUR ---
CM CM IN TO VISIT WITH PT AND FAMILY. CM EXPLAINED ROLE TO PT AND FAMILY CONTACT INFORMATION PROVIDED. PT AND FAMILY DENY NEEDS AT HOME AND ARE AWARE TO CONTACT CM SHOULD NEEDS ARISE.
--- NOTE | 2017-01-09 12:05 | ECHOF ---
DATE OF SERVICE 01/08/2017 INDICATION Stroke. TECHNICAL QUALITY Technically good 2-D, M-mode, Doppler echocardiographic images were submitted for interpretation. FINDINGS 1. CARDIAC CHAMBERS. All cardiac chamber measurements are normal. Aortic root diameter is normal. Left atrium appears slightly prominent with a measurement of 3.9 cm - falls within upper-normal range. RV size and contractility appear normal. Pacemaker leads are seen in the right heart, appear to be unremarkable. 2. LEFT VENTRICLE. Analysis reveals borderline concentric LVH. Wall motion analysis is normal. Systolic function is normal. Ejection fraction is normal, about 60%. Diastolic dysfunction, grade I/IV, is present. Septal hypokinesis is present. Appears to be related to ventricular pacing. 3. VALVES. Aortic valve exhibits mild sclerosis. Valve opening is normal. Mitral valve exhibits annular calcification present and leaflet sclerosis. Valve excursion is normal. Tricuspid valve structure and motion appear normal with normal valve excursion. 4. DOPPLER. Shows mild to moderate aortic regurgitation, trace regurgitation involving mitral, tricuspid and pulmonic valves, none of hemodynamic significance. 5. No evidence of pericardial effusion, intracardiac masses, thrombi, vegetations or demonstrable shunts. 6. Normal central venous pressure. 7. Systolic PA pressure estimated to be normal. IMPRESSION 1. Normal cardiac chamber size. 2. Normal LV systolic function, EF of 60% with borderline LVH and mild diastolic dysfunction. 3. Aortic valve sclerosis with eccentric aortic regurgitation (2+). 3. Mitral valve sclerosis and annular calcification. 4. No evidence of intracardiac masses, thrombi, vegetations or shunts. 5. Patient is in sinus rhythm and appears to be ventricular paced throughout the study. [facility]
--- NOTE | 2017-01-09 12:57 | PNPDOC ---
Subjective Date DATE: 01/09/17 TIME: 12:45 Subjective The patient was seen today accompanied by his . He states that he was fixing his lawnmower yesterday and was on the ground and was starting to get up and then at some point lost consciousness. He does not think he really fell because he was already on the ground. He did not have loss of bowel or bowel bladder function. He states he was on the ground for 1-2 hours and was not able to get up he cuts his legs felt too weak. He states his legs are chronically weak secondary to myasthenia gravis and secondary to muscle weakness from statin use. He also stated that his left arm was painful and weak yesterday. Today he states his arm on the left is a little painful when he moves it but he doesn't feel weak in his arm today. He states his legs are feeling stronger than yesterday but not back to normal. He denies any headache from his possible fall. He denies any chest pain or palpitations. He denied having any fevers, chills or sweats recently. He denied any problems with upper respiratory infection, diarrhea or dysuria. He denies any numbness or tingling. He denies any confusion yesterday or today. He denied any difficulties with speech or swallowing. He denied any visual changes. He has never had a seizure. He is eating and drinking well today. He has a good appetite. He is urinating frequently with the IV fluids. He did get up and walk in the halls with physical therapy and a walker today. He states sometimes he uses a cane at home but usually does not need an assistive device. He states he does not see a neurologist regarding his myasthenia gravis. He does not want a neurologist. He has only been on pyridostigmine but has not used IVIG in the past. He states he sees Dr. Timmy Raymundo for cardiology care and has a pacemaker. He states his pacemaker was checked recently and was functioning well. The patient denied any palpitations yesterday. He denies any chest pains. States that when he gets up too quickly he does feel lightheaded but does not recall if that occurred yesterday. Objective Vital Signs Vital signs Vital Signs Date Time Temp Pulse Resp B/P Pulse Ox O2 Delivery O2 Flow Rate FiO2 01/09/17 07:54 97.5 62 18 152/70 93 Room Air I&O cumulative 3243/800+4 incontinent voids GEN-alert, oriented 3, no acute distress HEENT-sclera anicteric, pupils are equal round and reactive, oropharynx is moist NECK-supple, carotids are silent CV-regular rate and rhythm CHEST-clear to auscultation bilaterally ABD-left, nontender, nondistended with positive bowel sounds -no Wiggins EXT-no edema, SCDs are on NEURO-cranial nerves II through XII are grossly intact, motor strength is equal and 4+ in the upper extremities and equal and 3+ to 4 in the lower extremities. Speech is fluent and without dysarthria. He does clear his throat frequently. SKIN-warm and dry and without rashes Height (Feet): 5 Height (Inches): 11.00 Weight (Kilograms): 80.500 Laboratory Laboratory Item Value Date Time Total Creatine Kinase 5898 U/L H 01/09/17 0446 Triglycerides Level 173 MG/DL H 01/08/17 1513 Cholesterol Level 243 MG/DL H 01/08/17 1513 LDL Cholesterol, Calculated 172.4 H 01/08/17 1513 VLDL Cholesterol 34.6 MG/DL H 01/08/17 1513 HDL Cholesterol Direct 36 MG/DL L 01/08/17 1513 Cholesterol/HDL Ratio 6.8 RATIO H 01/08/17 1513 Thyroid Stimulating Hormone (TSH) 0.02 MIU/L L 01/08/17 1513 Total Creatine Kinase 1310 U/L H 01/08/17 1513 Troponin I 0.070 ng/ml 01/09/17 0446 Troponin I 0.099 ng/ml 01/08/17 2256 Troponin I 0.098 ng/ml 01/08/17 1513 Laboratory Tests 01/08/17 15:13 01/09/17 04:46 Laboratory Tests 01/08/17 15:13 01/09/17 04:[address] head yesterday shows no acute findings Carotid Doppler shows a 50-60% stenosis of the left mid to distal internal carotid artery Echocardiogram IMPRESSION 1. Normal cardiac chamber size. 2. Normal LV systolic function, EF of 60% with borderline LVH and mild diastolic dysfunction. 3. Aortic valve sclerosis with eccentric aortic regurgitation (2+). 3. Mitral valve sclerosis and annular calcification. 4. No evidence of intracardiac masses, thrombi, vegetations or shunts. 5. Patient is in sinus rhythm and appears to be ventricular paced throughout the study. Chest x-ray yesterday shows left basilar infiltrate versus atelectasis Assessment & Plan Problems: (1) Rhabdomyolysis Status: Acute Qualifiers: Rhabdomyolysis type: traumatic Encounter type: initial encounter Qualified Codes: T79.6XXA - Traumatic ischemia of muscle, initial encounter Assessment & Plan: Secondary to being down on concrete for extended period of time. (2) Weakness Status: Acute Assessment & Plan: R/O stroke. Possible MG exacerbation. (3) Hypernatremia Status: Acute Assessment & Plan: POA (4) Myasthenia gravis Status: Chronic (5) HTN (hypertension) Status: Chronic Qualifiers: Hypertension type: essential hypertension Qualified Codes: I10 - Essential (primary) hypertension (6) Hypercholesteremia Status: Chronic Assessment & Plan: Cannot tolerate Crestor or Lipitor - cause severe muscle weakness (7) Hypothyroidism Status: Chronic Qualifiers: Hypothyroidism type: acquired Qualified Codes: E03.9 - Hypothyroidism, unspecified (8) Essential tremor Status: Chronic (9) Atrial fibrillation Status: Resolved Assessment & Plan: hx of cardioversion (10) Bleeding ulcer Status: Resolved Assessment & Plan: Hx of duodenal bleeding ulcers in 2002 and 2007 - instructed not to take ASA Plan/Intensity of Service Impression Generalized Weakness and weakness of left upper extremity of uncertain etiology- possible ischemic stroke that is improving, versus exacerbation of myasthenia gravis, versus dehydration versus other-overall, weakness is improving Rhabdomyolysis likely secondary to the patient's prolonged time on the cement- continue IV fluids, recheck CPK now and in the morning. Recheck renal panel today. Loss of consciousness-uncertain etiology. Cannot rule out seizure although unlikely since he was not incontinent and did not bite his tongue. Possibly secondary to dehydration versus orthostatic hypotension versus arrhythmia. On telemetry he has had no arrhythmias noted. Aortic regurgitation on echo Myasthenia gravis Chronic leg weakness from statin use Atherosclerosis left internal carotid artery Hyperlipidemia Hypertension History of hypothyroidism with overly suppressed TSH-we will decrease Synthroid Hypernatremia-resolved Plan Regarding rhabdomyolysis, CPK is now trending down and is 5000. Bicarbonate level is elevated at 32. We'll change IV fluids to normal saline and decreased to 75 ML's per hour. Recheck CPK and renal function tomorrow. Replace potassium orally Continue to monitor on telemetry Continue PT and OT Consider initiation of Plavix for possible stroke No statin or aspirin because of history of intolerance to statin with muscle weakness and GI bleed with aspirin Decrease Synthroid due to low TSH Regarding carotid atherosclerosis, would recommend follow-up as an outpatient. He cannot take a statin due to severe muscle weakness. DVT Prophylaxis: SCD'S Code Status Full Code Hospital Course Summary Disclaimer The hospital course summary below is not to be considered part of the above Progress Note. Hospital Course Summary Have independently interviewed and examined pt. Chart reviewed. Case discussed with ED provider and my CRUISE COORDINATOR. Care plan developed with my supervision; agree with above. CC: Weakness. 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 Laying on concrete to grease the zerks. When tried to get up, found he was too weak to get on feet. 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 return after he had been down for about 1.5 hours. Hard to get him up. Left shoulder and ab sore from attempts to get up. Not eaten anything since breakfast this morning. No nausea. No loose of bowel/bladder function. Breathing stable. No chest pain. No recent viral syndrome. Lungs: clear CV: regular AB; soft nt/nd +BS MSE: awake alert appropriate Neuro: diffuse weakness of upper ext bilaterally. Plan: OBS. IVF for hydration - with elevated CPK and Rhabdo, will change IVF to D5W with 2 amps of sodium Bicarb. MRI precluded due to pacemaker. PT/OT/Speech eval. SCD. Monitor CPK and renal function. Recheck BMP in am due to hypernatremia and rhabdo. Potentially needing IVIG if weakness not improving with hydration and normalization of CPK. JU OBRIEN MD Jan 09, 2017 12:50
[2017-01-09 13:42] LABS: ALBUMIN 3.4 G/DL (3.5-5.0); ANION GAP 10 MEQ/L (5-15); BUN/CREATININE RATIO 15 RATIO (6-26); CHLORIDE 102 MEQ/L (98-107); CO2 - CARBON DIOXIDE 32 MEQ/L (22-30); CREATININE 0.8 MG/DL (0.8-1.5); GLOMERULAR FILTRATION RATE 92; GLUCOSE 127 MG/DL (75-110); PHOSPHORUS 2.9 MG/DL (2.5-4.5); POTASSIUM 3.5 MEQ/L (3.6-5); SODIUM 144 MEQ/L (134-144)
[2017-01-09 13:48] LABS: CK - CPK 5000 U/L (55-170)
[2017-01-09] MEDS: NORMAL SALINE 1,000 ML IV SCH (14:52)
--- NOTE | 2017-01-09 18:24 | NUR ---
SHIFT SUMMARY PT IS BACK IN BED AT THIS TIME. PT IS ALERT AND ORIENTED X3. VS CHARTED. PT IS ON RA. DENIED SOA. PT GETS UP WITH X1 ASSIST, WALKER AND GAIT BELT. PT GOT UP TO CHAIR FOR EVERY MEAL TODAY. PT AMBULATE A COUPLE TIMES IN THE DEL REAL. PT HAS A ADEQUATE PO INTAKE AND URINE OUTPUT. CALL LIGHT IS WITHIN REACH.
[2017-01-09] MEDS: GABAPENTIN 100 MG CAPSULE PO SCH (21:00)
[2017-01-09] MEDS: METOCLOPRAMIDE 5mg TABLET PO SCH (21:00)
[2017-01-09] MEDS: PRIMIDONE 50 MG TABLET PO SCH (21:19)
[2017-01-09] MEDS: LEVOTHYROXINE 125 MCG TABLET PO SCH (21:20)
[2017-01-09] MEDS: FINASTERIDE 5 MG TABLET PO SCH (21:21)
[2017-01-09] MEDS: ACETAMINOPHEN 325 MG TABLET PO PRN (21:34)
[2017-01-10] VITALS (9 sets, daily range): BP systolic 134–199; BP diastolic 66–86; PULSE 60–80; RESP 18–20; TEMP 97.5–98.2; O2SAT 90–96
[2017-01-10] MEDS: NORMAL SALINE 1,000 ML IV SCH (04:05)
[2017-01-10 04:58] LABS: BLOOD, URINE NEGATIVE (NEGATIVE); COLOR,URINE YELLOW (YELLOW); LEUKOCYTE ESTERASE ,URINE NEGATIVE (NEGATIVE); NITRITE,URINE NEGATIVE (NEGATIVE); UROBILINOGEN,URINE 0.2 EU/DL (NORMAL)
--- NOTE | 2017-01-10 05:28 | NUR ---
UA CLEAN HAT PLACED IN THE TOILET. PT UP TO THE BATHROOM VOIDS WITHOUT DIFFICULT. URINE COLLECTED FOR UA ORDER AND TAKEN TO LAB.
[2017-01-10 05:58] LABS: BASOPHILS % (AUTO) 0.4 % (0-2); EOSINOPHILS # (AUTO) 0.3 T/MM3 (0-0.5); EOSINOPHILS % (AUTO) 4.9 % (0-4); HCT - HEMATOCRIT 37.3 % (41-53); HGB - HEMOGLOBIN 12.1 GM/DL (13.5-17.5); IMMATURE GRANULOCYTE # (AUTO) 0.01 T/MM3 (0.00-0.03); IMMATURE GRANULOCYTE % (AUTO) 0.2 % (0.0-0.5); LYMPHOCYTES # (AUTO) 1.7 T/MM3 (1-4.8); LYMPHOCYTES % (AUTO) 30.6 % (23-45); MEAN CORPUSCULAR HGB 30.9 UUG (26-34); MEAN CORPUSCULAR HGB CONC(MCHC 32.4 GM/DL (31-37); MEAN CORPUSCULAR VOLUME 95.2 UM3 (80-100); MEAN PLATELET VOLUME 9.3 UM3 (9.4-12.4); MONOCYTES # (AUTO) 0.4 T/MM3 (0-0.8); MONOCYTES % (AUTO) 7.4 % (0-9.0); NEUTROPHILS #(AUTO)-ABSOLUTE 3.1 T/MM3 (1.8-7.7); NEUTROPHILS % (AUTO) 56.5 % (33-66); RED BLOOD COUNT 3.92 M/MM3 (4.50-5.90); WBC - WHITE BLOOD COUNT 5.5 T/MM3 (4.5-11.0)
[2017-01-10 06:02] LABS: ALBUMIN 2.9 G/DL (3.5-5.0); ALKALINE PHOSPHATASE 44 U/L (38-126); ALT (SGPT) 56 U/L (21-72); ANION GAP 7 MEQ/L (5-15); AST (SGOT) 124 U/L (17-59); BUN/CREATININE RATIO 14 RATIO (6-26); CALCIUM 8.6 MG/DL (8.4-10.2); CHLORIDE 107 MEQ/L (98-107); CO2 - CARBON DIOXIDE 31 MEQ/L (22-30); CREATININE 0.7 MG/DL (0.8-1.5); GLOMERULAR FILTRATION RATE 107; GLUCOSE 99 MG/DL (75-110); POTASSIUM 3.4 MEQ/L (3.6-5); SODIUM 145 MEQ/L (134-144); TOTAL PROTEIN 5.7 G/DL (6.3-8.2)
[2017-01-10 06:10] LABS: CK - CPK 2965 U/L (55-170)
[2017-01-10] MEDS: OMEPRAZOLE 20 MG CAPSULE PO SCH (06:10)
[2017-01-10] MEDS: PYRIDOSTIGMINE 60 MG TABLET PO SCH (08:08)
[2017-01-10] MEDS: GABAPENTIN 100 MG CAPSULE PO SCH ×2 (08:08→21:07)
[2017-01-10] MEDS: PRIMIDONE 50 MG TABLET PO SCH ×2 (08:08→21:07)
[2017-01-10] MEDS ORDERED: POTASSIUM CHLORIDE 20 MEQ TABLET PO ONE (09:00)
[2017-01-10] MEDS ORDERED: METO50TA5 PO (14:33)
--- NOTE | 2017-01-10 14:42 | CONSPD ---
Consultation Info Date DATE: 01/10/17 TIME: 14:12 Reason for Consultation: cardiac evaluation HPI - Adult Date DATE: 01/10/17 TIME: 14:12 General Date of Admission Date of Admission: Jan 09, 2017 at 11:30 Chief Complaint: Weakness History of Present Illness 86 yo wm well known to me . 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 He tried to turn on his side w/o success . he waited about 1.5 hrs until his came back from work an dgot him help. He denies and warning symptoms, no dizziness ,palptations or CP. denies dyspnea on exertion. tehre was some concern about a possible stroke /TIA but he denies otherwise any sx of paresthisa speech or visual difficulties or a new weakness. He has chrnic leh weakness thought to be possible [id number] to Statin Rx ,used to be on Crestor and Lipitor. he had CT ob brain ,ehcocardiogram and B carotid doppler results of which were reviewed in detail. 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 PPM interrogation done at my request showed NL PPM Fx and no recorded arrythmias. he apperntly has h/o afib with GI bleed on warfarin had to be stopped yrs ago. was also asked to avoid ASA . He denies any hematochezia or melena, N/V. NL appetite. has had a fall a month ago due to loss of balance. He gets around usisng a cane . he walked today w RN ussing his walker w/o angina, dyspnea or dizziness. he s also been treated with IVF w Bicarb for rhabdo.His appetite and fluid intake NL per RN. Past Medical History Past Medical History Metabolic: hypercholesterolemia, hypertension, hypothyroidism GI: GERD, ulcers Musculoskeletal: back pain, other Surgical History General: exploratory laparotomy, hernia Cardiac: pacemaker Current Medications Home Meds Reported Medications Metoprolol Tartrate (Metoprolol Tartrate) 50 Mg Tablet, 25 MG PO BID, #30 TAB Take 1/2 tablet, by mouth, EVERY MORNING AND EVERY EVENING 01/10/17 Saw [place] Fruit (Saw [place]) 450 Mg Capsule, 900 MG PO HS 01/08/17 Lycopene (Lycopene) 10 Mg Capsule, 10 MG PO HS 01/08/17 Cholecalciferol (Vitamin D3) (Vitamin D3) 5,000 Unit Tablet, 5000 UNIT PO HS 01/08/17 Ca Carbonate/Vitamin D3/Vit K (Citracal Soft Chew) 1 Each Tab.chew, 1 TAB PO BID 01/08/17 Fish Oil/Dha/Epa (Fish Oil 1,200 mg Fish Oil) 1 Each Capsule, 1200 MG PO QID 01/08/17 Gabapentin (Gabapentin) 100 Mg Capsule, 100 MG PO BID 01/08/17 Finasteride (Proscar) 5 Mg Tablet, 5 MG PO HS 01/28/11 Pyridostigmine Centre (Pyridostigmine Centre) 60 Mg Tablet, 60 MG PO DAILY 08/16/09 Primidone (Primidone) 50 Mg Tablet, 50 MG PO BID 08/16/09 Omeprazole (Prilosec) 20 Mg Tablet.dr, 20 MG PO DAILY 08/16/09 Metoclopramide Hcl (Metoclopramide Hcl) 5 Mg Tablet, 5 MG PO HS 08/16/09 Levothyroxine Sodium (Levothyroxine Sodium) 150 Mcg Tablet, 150 MCG PO HS 08/16/09 Allergies: Coded Allergies: Mwksayk-Cmv-Gvs Reductase Inhibitor (Verified Allergy, Unknown, LEG MUSCLE WEAKNESS, 01/08/17) rosuvastatin (Verified Allergy, Unknown, 01/08/17) aspirin (Verified Adverse Reaction, Unknown, 01/08/17) due to a bleeding ulcer Family History FOUND: other Vaccines JUN 2016January Yes Social History Smoking Status: Never smoker Does patient use chewing tobac: No Second Hand Exposure: No Substance Use Type: does not use Alcohol Intake: none Marital Status: Sexuality: female partner Housing: house Household Members: spouse Current Occupational Status: retired Occupational Hazard: No Advance Directives: Yes DPOA for Healthcare Only, Yes Living Will Review of Systems Constitutional: DENIES: appetite decrease, chills, dizziness, fatigue, fever, weight gain, weight loss Eyes General: DENIES: erythema Vision: DENIES: blurring, double vision, loss of visual rose ENMT Balance: DENIES: ataxia, falling to one side, vertigo Nose: NOT FOUND: nosebleeds Mouth/Throat: DENIES: change in swallowing Cardiovascular DENIES: chest pain, dyspnea on exertion, orthopnea, paroxysmal nocturnal dysp Vascular: DENIES: pedal edema, unilateral swelling Pulmonary Respiratory: DENIES: cough, dyspnea, pleuritic chest pain, sputum, tachypnea GI Upper Abdomen: DENIES: food intolerances, heartburn/indigestion, hematemesis, nausea, vomiting Lower Abdomen: DENIES: blood in stool, diarrhea, melena General: hematuria (apperently microscopic hematuria resolved ,spontaneously no gross hematuria. ) Musculoskeletal General: other, DENIES: cramps, joint swelling Integumentary Skin: DENIES: color change Neurological General: poor coordination, DENIES: aphasia, ataxia, blackouts, dysarthria, dysesthesia, memory disturbances, seizures, vertigo Psychiatric Psychiatric: DENIES: depression, memory impairment, nervousness Endocrine DENIES: heat/cold intolerance Hematologic/Lymphatic DENIES: anemia Allergic/Immunological DENIES: allergic reactions, frequent infections Physical Exam General General Nourishment: well nourished, well developed, apparent age, adult Vital Signs Vital Signs Date Time Temp Pulse Resp B/P Pulse Ox O2 Delivery O2 Flow Rate FiO2 01/10/17 08:11 60 163/69 01/10/17 07:27 97.5 20 95 Room Air Height (Feet): 5 Height (Inches): 11.00 Telemetry Rhythm: Sinus Rhythm, Vpaced, Apaced Eyes Brief: FOUND: EOMI, PERRL, NOT FOUND: trauma ENMT Brief: FOUND: mucosa moist Neck Brief: FOUND: other (equal carotid upstrokes), NOT FOUND: JVD, carotid bruits Respiratory Brief: FOUND: equal bilaterally, other (few ronchi/slightl coarse BS in bases), NOT FOUND: rales, wheezes Cardiovascular (brief) Cardiac Brief: FOUND: murmur (1/6 TASAI no AI m.), regular rate, regular rhythm, NOT FOUND: pedal edema, peripheral edema Capillary Refill: <2 sec Abdomen (brief) Abdominal Brief: FOUND: BS normo active x4, soft, NOT FOUND: distended, tender (brief) Male Brief: NOT FOUND: deformity Lymphatic (brief) Lymphatic Brief: NOT FOUND: adenopathy, lymphedema Musculoskeletal (brief) Musculoskeletal Brief: NOT FOUND: deformity, loss of motion Integumentary (brief) Integumentary Brief: FOUND: dry, other (NL PPM scar x2 ( including battery replacement)), pink, warm Neurologic (brief) Neurological Brief: FOUND: cranial 2-12 intact, motor, sensory, NOT FOUND: facial droop, ptosis Neurologic RN Documented GCS Eye Opening: (4)Spontaneous Verbal: (5)Oriented Motor: (6)Obeys Commands Total: Psychiatric (brief) FOUND: alert, attentive, normal affect, oriented Psychiatric Psychiatric General: FOUND: affect, judgment, mood Attitude: FOUND: cooperative Laboratory Laboratory Tests Test 01/08/17 14:39 01/08/17 15:13 01/08/17 16:04 01/08/17 22:56 Glucometer 100mg/dL White Blood Count 13.0T/MM3 Red Blood Count 4.91M/MM3 Hemoglobin 15.2GM/DL Hematocrit 45.6% Mean Corpuscular Volume 92.9UM3 Mean Corpuscular Hemoglobin 31.0UUG Mean Corpuscular Hemoglobin Concent 33.3GM/DL RDW Standard Deviation 42.3FL Platelet Count 161T/MM3 Mean Platelet Volume 9.3UM3 Immature Granulocyte % (Auto) 0.5% Neutrophils (%) (Auto) 82.9% Lymphocytes (%) (Auto) 9.1% Monocytes (%) (Auto) 6.6% Eosinophils (%) (Auto) 0.7% Basophils (%) (Auto) 0.2% Absolute Immature Granulocyte (auto 0.07T/MM3 Absolute Neutrophils (auto) 10.8T/MM3 Absolute Lymphocytes (auto) 1.2T/MM3 Absolute Monocytes (auto) 0.9T/MM3 Absolute Eosinophils (auto) 0.1T/MM3 Absolute Basophils (auto) 0.0T/MM3 Prothromb Time International Ratio 1.07 Activated Partial Thromboplast Time 25.6SEC Turbidity < 20 Sodium Level 147MEQ/L Potassium Level 4.2MEQ/L Chloride Level 108MEQ/L Carbon Dioxide Level 27MEQ/L Anion Gap 12MEQ/L Blood Urea Nitrogen 16.0MG/DL Creatinine 0.9MG/DL Glomerular Filtration Rate Calc 80 BUN/Creatinine Ratio 18RATIO Glucose Level 97MG/DL Calculated Osmolality 283MOSM/KG Calcium Level 10.1MG/DL Total Bilirubin 0.80MG/DL Icterus Index < 2 Aspartate Amino Transf (AST/SGOT) 72U/L Alanine Aminotransferase (ALT/SGPT) 42U/L Alkaline Phosphatase 59U/L Total Creatine Kinase 1310U/L Troponin I 0.098ng/ml 0.099ng/ml Total Protein 7.7G/DL Albumin 4.0G/DL Globulin 3.7G/DL Albumin/Globulin Ratio 1.1RATIO Triglycerides Level 173MG/DL Cholesterol Level 243MG/DL LDL Cholesterol, Calculated 172.4 VLDL Cholesterol 34.6MG/DL HDL Cholesterol Direct 36MG/DL Cholesterol/HDL Ratio 6.8RATIO Thyroid Stimulating Hormone (TSH) 0.02MIU/L Chemistry Specimen Hemolysis 39 < 15 Urine Collection Type Cleancatch-midstream Urine Color Yellow Urine Turbidity Clear Urine pH 5.0 Urine Specific Thomson >=1.030 Urine Protein 1+ Urine Glucose (UA) Negative Urine Ketones 1+ Urine Blood 3+ Urine Nitrite Negative Urine Bilirubin Negative Urine Urobilinogen 0.2EU/DL Urine Leukocyte Esterase Negative Urine RBC 1-3/HPF Urine WBC 0-1/HPF Urine Squamous Epithelial Cells None seen Urine Amorphous Urates Few Urine Bacteria 1+ Urine Hyaline Casts 3-5/LPF Urine Mucus Present Urine Culture Indicated Cult not indicated Test 01/09/17 04:46 01/09/17 12:54 01/10/17 04:08 01/10/17 05:22 White Blood Count 7.9T/MM3 5.5T/MM3 Red Blood Count 4.21M/MM3 3.92M/MM3 Hemoglobin 13.0GM/DL 12.1GM/DL Hematocrit 39.4% 37.3% Mean Corpuscular Volume 93.6UM3 95.2UM3 Mean Corpuscular Hemoglobin 30.9UUG 30.9UUG Mean Corpuscular Hemoglobin Concent 33.0GM/DL 32.4GM/DL RDW Standard Deviation 42.4FL 43.3FL Platelet Count 169T/MM3 159T/MM3 Mean Platelet Volume 9.1UM3 9.3UM3 Immature Granulocyte % (Auto) 0.3% 0.2% Neutrophils (%) (Auto) 62.4% 56.5% Lymphocytes (%) (Auto) 26.6% 30.6% Monocytes (%) (Auto) 8.0% 7.4% Eosinophils (%) (Auto) 2.4% 4.9% Basophils (%) (Auto) 0.3% 0.4% Absolute Immature Granulocyte (auto 0.02T/MM3 0.01T/MM3 Absolute Neutrophils (auto) 4.9T/MM3 3.1T/MM3 Absolute Lymphocytes (auto) 2.1T/MM3 1.7T/MM3 Absolute Monocytes (auto) 0.6T/MM3 0.4T/MM3 Absolute Eosinophils (auto) 0.2T/MM3 0.3T/MM3 Absolute Basophils (auto) 0.0T/MM3 0.0T/MM3 Turbidity < 20 < 20 < 20 Sodium Level 143MEQ/L 144MEQ/L 145MEQ/L Potassium Level 3.4MEQ/L 3.5MEQ/L 3.4MEQ/L Chloride Level 102MEQ/L 102MEQ/L 107MEQ/L Carbon Dioxide Level 31MEQ/L 32MEQ/L 31MEQ/L Anion Gap 10MEQ/L 10MEQ/L 7MEQ/L Blood Urea Nitrogen 14.0MG/DL 12.0MG/DL 10.0MG/DL Creatinine 0.7MG/DL 0.8MG/DL 0.7MG/DL Glomerular Filtration Rate Calc 107 92 107 BUN/Creatinine Ratio 20RATIO 15RATIO 14RATIO Glucose Level 114MG/DL 127MG/DL 99MG/DL Calculated Osmolality 277MOSM/KG 279MOSM/KG 278MOSM/KG Calcium Level 9.0MG/DL 9.0MG/DL 8.6MG/DL Total Bilirubin 0.90MG/DL 0.70MG/DL Icterus Index < 2 < 2 < 2 Aspartate Amino Transf (AST/SGOT) 165U/L 124U/L Alanine Aminotransferase (ALT/SGPT) 61U/L 56U/L Alkaline Phosphatase 47U/L 44U/L Total Creatine Kinase 5898U/L 5000U/L 2965U/L Troponin I 0.070ng/ml Total Protein 6.0G/DL 5.7G/DL Albumin 3.2G/DL 3.4G/DL 2.9G/DL Globulin 2.8G/DL 2.8G/DL Albumin/Globulin Ratio 1.1RATIO 1.0RATIO Chemistry Specimen Hemolysis < 15 < 15 < 15 Phosphorus Level 2.9MG/DL Urine Collection Type Voided-not cc-midstr Urine Color Yellow Urine Turbidity Clear Urine pH 6.0 Urine Specific Thomson 1.015 Urine Protein Negative Urine Glucose (UA) Negative Urine Ketones Negative Urine Blood Negative Urine Nitrite Negative Urine Bilirubin Negative Urine Urobilinogen 0.2EU/DL Urine Leukocyte Esterase Negative EKG INSULATION SUPERVISOR PPM interogation NL . 100% WELFARE OFFICER. >80 3% .NL impedenace .0% AF.no arrythmia. Nl battery V. Radiology CXR atelectasis . carotid ndoppler 50-60% mid and distal stnosis echo NL LVFX 2+AI see full reports head ct neg. Impression/Recommendation Recommendation CHB and SB with NL PPM FX carotid arterey stenosis asymptomatic significant hypercholetsrolemia and hi TG (mixed) w h/o statin induced myopathy rhabdo due to trauma and lying down for a while. PPM interrogation done and reviewed as d/w You check orthsostatic BP/P as d/w you , they showed no orthostasis. he is still hypertensive will resume his home metorpolol. reradng lipid ,may be best to start Niacin 500-1000 mg as outpt ,would wait about 2 wks for rhabdo recovery. one could start Questran 2 scoops BID ,spread out from otehr pills , immediately ,but that may raise his TG. no statin unfortuantely due to his hx of associated myopathy f/u B carotid doppler is ordered with me in 6 months Plavix 75 mg daily regarding his REGINALD . R anbd B dw pt and including rsik of GI bleed ,they agree to start Rx for CVA prevention RTC to see me 1 mo thank you! MICHA AVENDAÑO MD Jan 10, 2017 14:24
--- NOTE | 2017-01-10 14:43 | NUR ---
BP DR. AVENDAÑO NOTIFIED OF BP CHARTED WITH ORTHOSTATIC VS, NOTIFIED UNABLE TO OBTAIN STANDING BP DUE TO PATIENT NEEDING TO USE THE BATHROOM AND UNABLE TO WAIT. ORDERS RECEIVED, ENTERED AND DONE. WILL RECHECK BP.
[2017-01-10] MEDS: CLOPIDOGREL 75 MG TABLET PO SCH (16:03)
--- NOTE | 2017-01-10 16:54 | NUR ---
STATUS PT IS A&OX3. PT CALLS FOR NEEDS. HAS BEEN UP TO THE BR WITH WALKER, GAIT BELT AND 1 ASSIST SEVERAL TIMES TODAY. AMBULATED WITH STAFF THREE TIMES TODAY. IS VISITING NOW. PB IS TRENDING DOWN. ALARMS IN USE.
--- NOTE | 2017-01-10 19:55 | PNPDOC ---
Subjective Date DATE: 01/10/17 TIME: 19:48 Subjective The patient is feeling well today. He was seen this afternoon accompanied by his . He has been eating and drinking well. He denies any chest pains or palpitations. He denies any lightheadedness. He has some occasional abdominal discomfort when he takes a deep breath or pushes on his abdomen. He denies any left arm weakness. He is up walking with a walker. Blood pressure was elevated this afternoon up to 195 systolic. He had forgotten to notify us of his beta maryse medicine that he takes chronically. This was restarted this afternoon and blood pressure improved within an hour. He denies any chest pains or palpitations. Objective Vital Signs Vital signs Vital Signs Date Time Temp Pulse Resp B/P Pulse Ox O2 Delivery O2 Flow Rate FiO2 01/10/17 16:37 143/71 01/10/17 16:29 67 01/10/17 15:57 97.7 20 96 Room Air GEN-alert, oriented, no acute distress HEENT-sclera are anicteric, oropharynx is moist NECK-supple CV-regular rate and rhythm CHEST-clear to auscultation bilaterally ABD-soft, nontender, nondistended with positive bowel sounds -no Wiggins EXT-no edema NEURO-cranial nerves II through XII intact, motor strength equal in the upper and lower extremities SKIN-warm and dry and without rashes Telemetry Rhythm: Sinus Rhythm, Vpaced, Apaced Height (Feet): 5 Height (Inches): 11.00 Weight (Kilograms): 82.100 Laboratory Laboratory Laboratory Tests 01/09/17 04:46 01/09/17 12:54 01/10/17 05:22 Laboratory Tests 01/09/17 04:46 01/10/17 05:22 Assessment & Plan Problems: (1) Rhabdomyolysis Status: Acute Qualifiers: Rhabdomyolysis type: traumatic Encounter type: initial encounter Qualified Codes: T79.6XXA - Traumatic ischemia of muscle, initial encounter Assessment & Plan: Secondary to being down on concrete for extended period of time. (2) Weakness Status: Acute Assessment & Plan: R/O stroke. Possible MG exacerbation. (3) Hypernatremia Status: Acute Assessment & Plan: POA (4) Myasthenia gravis Status: Chronic (5) HTN (hypertension) Status: Chronic Qualifiers: Hypertension type: essential hypertension Qualified Codes: I10 - Essential (primary) hypertension (6) Hypercholesteremia Status: Chronic Assessment & Plan: Cannot tolerate Crestor or Lipitor - cause severe muscle weakness (7) Hypothyroidism Status: Chronic Qualifiers: Hypothyroidism type: acquired Qualified Codes: E03.9 - Hypothyroidism, unspecified (8) Essential tremor Status: Chronic (9) Atrial fibrillation Status: Resolved Assessment & Plan: hx of cardioversion (10) Bleeding ulcer Status: Resolved Assessment & Plan: Hx of duodenal bleeding ulcers in 2002 and 2007 - instructed not to take ASA Plan/Intensity of Service 01/10/2017 Impression Generalized Weakness and weakness of left upper extremity of uncertain etiology- resolved Rhabdomyolysis likely secondary to the patient's prolonged time on the cement- improving. Discontinue IV fluids Loss of consciousness-uncertain etiology. Cannot rule out seizure although unlikely since he was not incontinent and did not bite his tongue. Possibly secondary to dehydration versus orthostatic hypotension versus arrhythmia. On telemetry he has had no arrhythmias noted. Aortic regurgitation on echo Myasthenia gravis Chronic leg weakness from statin use Atherosclerosis left internal carotid artery Hyperlipidemia Hypertension-beta maryse restarted History of hypothyroidism with overly suppressed TSH-we will decrease Synthroid Hypernatremia-resolved Plan Regarding rhabdomyolysis, CPK is now trending down and is in the 2000 range. IV fluids discontinued Replace potassium orally Continue to monitor on telemetry Continue PT and OT Discussed patient today with Dr. Raymundo. Will start Plavix to decrease risk of stroke with the patient's significant carotid atherosclerosis. We'll consider either Questran to start inpatient versus niacin starting in 1-2 weeks. Patient will follow-up with Dr. Raymundo regarding carotid atherosclerosis. The patient is not able to take a statin or aspirin Synthroid decreased due to low TSH Probable home tomorrow if doing well and blood pressure better. He would like to do outpatient physical therapy Code Status Full Code Hospital Course Summary Disclaimer The hospital course summary below is not to be considered part of the above Progress Note. Hospital Course Summary Have independently interviewed and examined pt. Chart reviewed. Case discussed with ED provider and my SECRETARY OF STATE. Care plan developed with my supervision; agree with above. CC: Weakness. 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 When tried to get up, found he was too weak to get on feet. 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 return after he had been down for about 1.5 hours. Hard to get him up. Left shoulder and ab sore from attempts to get up. Not eaten anything since breakfast this morning. No nausea. No loose of bowel/bladder function. Breathing stable. No chest pain. No recent viral syndrome. Lungs: clear CV: regular AB; soft nt/nd +BS MSE: awake alert appropriate Neuro: diffuse weakness of upper ext bilaterally. Plan: OBS. IVF for hydration - with elevated CPK and Rhabdo, will change IVF to D5W with 2 amps of sodium Bicarb. MRI precluded due to pacemaker. PT/OT/Speech eval. SCD. Monitor CPK and renal function. Recheck BMP in am due to hypernatremia and rhabdo. Potentially needing IVIG if weakness not improving with hydration and normalization of CPK. 01/09/2017 Impression Generalized Weakness and weakness of left upper extremity of uncertain etiology- possible ischemic stroke that is improving, versus exacerbation of myasthenia gravis, versus dehydration versus other-overall, weakness is improving Rhabdomyolysis likely secondary to the patient's prolonged time on the cement- continue IV fluids, recheck CPK now and in the morning. Recheck renal panel today. Loss of consciousness-uncertain etiology. Cannot rule out seizure although unlikely since he was not incontinent and did not bite his tongue. Possibly secondary to dehydration versus orthostatic hypotension versus arrhythmia. On telemetry he has had no arrhythmias noted. Aortic regurgitation on echo Myasthenia gravis Chronic leg weakness from statin use Atherosclerosis left internal carotid artery Hyperlipidemia Hypertension History of hypothyroidism with overly suppressed TSH-we will decrease Synthroid Hypernatremia-resolved Plan Regarding rhabdomyolysis, CPK is now trending down and is 5000. Bicarbonate level is elevated at 32. We'll change IV fluids to normal saline and decreased to 75 ML's per hour. Recheck CPK and renal function tomorrow. Replace potassium orally Continue to monitor on telemetry Continue PT and OT Consider initiation of Plavix for possible stroke No statin or aspirin because of history of intolerance to statin with muscle weakness and GI bleed with aspirin Decrease Synthroid due to low TSH Regarding carotid atherosclerosis, would recommend follow-up as an outpatient. He cannot take a statin due to severe muscle weakness. JU OBRIEN MD Jan 10, 2017 19:54
[2017-01-10] MEDS: LEVOTHYROXINE 125 MCG TABLET PO SCH (21:06)
[2017-01-10] MEDS: METOCLOPRAMIDE 5mg TABLET PO SCH (21:06)
[2017-01-10] MEDS: FINASTERIDE 5 MG TABLET PO SCH (21:07)
[2017-01-10] MEDS: ACETAMINOPHEN 325 MG TABLET PO PRN (21:08)
[2017-01-11] VITALS (8 sets, daily range): BP systolic 158–204; BP diastolic 69–88; PULSE 6–72; RESP 16–18; TEMP 97.6–97.8; O2SAT 93–94
--- NOTE | 2017-01-11 05:06 | NUR ---
SHIFT SUMMARY PT IS ALERT AND ORIENTED X 3. UP WITH 1 ASSIST, FWW AND GAIT BELT. DIFFICULT FOR PT TO STAND UP FROM THE BED. REMINDED TO PUSH UP FROM THE BED AND NOT TO PULL ON THE FWW FOR SUPPORT. GAIT IS SLOW, STEADY WITH ASSIST. PT WAS UP TO THE BR AFTER HIS FAMILY LEFT. CAMPUS SAFETY OFFICER REPORTED PT WAS MAKING LOUD MOANING SOUND AND THEN WAS ATTEMPTING TO DIG STOOL OUT. WHEN ASKED BY THIS NURSE IF HE WAS HAVING A DIFFICULT TIME PASSING STOOL? PT STATED NO IT IS A ANXIETY IN MY HEAD. MILK OF MAG. GIVEN. NOTED WHEN HIS IS STANDING AT THE SINK HIS KNEES START TO BEND. PT REMINDED TO KEEP HIS LEGS STRAIGHT. PT STATES I KNOW THEY BECOME VERY WEAK IN A SHORT TIME. HE STATES HIS DAUGHTER AND SPOUSE ARE LOOKING INTO A LONG-TERM. ENCOURAGED PT IT MAYBE VERY HELPFUL TO HAVE ASSIST WITH HIS CARES. VERBALIZED UNDERSTANDING AND SEEM TO BE AT [place] WITH IT. PT CALLS FOR ASSIST. BED ALARM AND SCD'S ON. NEURO WITHIN NORMAL RANGE FOR THIS PT.
[2017-01-11] MEDS: OMEPRAZOLE 20 MG CAPSULE PO SCH (06:45)
[2017-01-11] MEDS: PYRIDOSTIGMINE 60 MG TABLET PO SCH (08:21)
[2017-01-11] MEDS: GABAPENTIN 100 MG CAPSULE PO SCH (08:21)
[2017-01-11] MEDS: PRIMIDONE 50 MG TABLET PO SCH (08:21)
[2017-01-11] MEDS: CLOPIDOGREL 75 MG TABLET PO SCH (08:22)
[2017-01-11 08:48] LABS: BASOPHILS % (AUTO) 0.6 % (0-2); EOSINOPHILS # (AUTO) 0.4 T/MM3 (0-0.5); EOSINOPHILS % (AUTO) 5.4 % (0-4); HCT - HEMATOCRIT 45.1 % (41-53); HGB - HEMOGLOBIN 14.5 GM/DL (13.5-17.5); IMMATURE GRANULOCYTE # (AUTO) 0.01 T/MM3 (0.00-0.03); IMMATURE GRANULOCYTE % (AUTO) 0.1 % (0.0-0.5); LYMPHOCYTES # (AUTO) 2.4 T/MM3 (1-4.8); LYMPHOCYTES % (AUTO) 33.6 % (23-45); MEAN CORPUSCULAR HGB 30.8 UUG (26-34); MEAN CORPUSCULAR HGB CONC(MCHC 32.2 GM/DL (31-37); MEAN CORPUSCULAR VOLUME 95.8 UM3 (80-100); MEAN PLATELET VOLUME 9.3 UM3 (9.4-12.4); MONOCYTES # (AUTO) 0.4 T/MM3 (0-0.8); MONOCYTES % (AUTO) 5.4 % (0-9.0); NEUTROPHILS #(AUTO)-ABSOLUTE 3.9 T/MM3 (1.8-7.7); NEUTROPHILS % (AUTO) 54.9 % (33-66); RED BLOOD COUNT 4.71 M/MM3 (4.50-5.90); WBC - WHITE BLOOD COUNT 7.1 T/MM3 (4.5-11.0)
[2017-01-11 09:02] LABS: ALBUMIN 3.8 G/DL (3.5-5.0); ANION GAP 10 MEQ/L (5-15); BUN/CREATININE RATIO 11 RATIO (6-26); CALCIUM 9.5 MG/DL (8.4-10.2); CHLORIDE 106 MEQ/L (98-107); CK - CPK 1309 U/L (55-170); CO2 - CARBON DIOXIDE 32 MEQ/L (22-30); CREATININE 0.8 MG/DL (0.8-1.5); GLOMERULAR FILTRATION RATE 92; GLUCOSE 101 MG/DL (75-110); PHOSPHORUS 3.5 MG/DL (2.5-4.5); POTASSIUM 4.3 MEQ/L (3.6-5); SODIUM 148 MEQ/L (134-144)
--- NOTE | 2017-01-11 11:09 | NUR ---
CM CM IN TO VISIT PT. PT DENIES HOME NEEDS AT TIME OF DC AND IF PT/OT ARE NEEDED HE WOULD LIKE TO DO THEM OUTPT AT [facility]. PT IS AWARE TO CALL CM SHOULD NEEDS ARISE.
[2017-01-11] MEDS ORDERED: LEVO125T4 PO (16:34)
[2017-01-11] MEDS ORDERED: CLOP75TA PO (16:34)
--- NOTE | 2017-01-11 16:38 | NUR ---
SCRIPTS SCRIPTS X2 CALLED TO [facility].
--- NOTE | 2017-01-11 16:45 | NUR ---
PT NOTE: Pt declined skilled PT services however reported that he could use some training on stairs. Pt was encouraged to attempt stair training. Pt and spouse reported that it was too late in the day and they did not want pt to miss supper.
--- NOTE | 2017-01-11 16:52 | DSPDOC ---
General Date Date DATE: 01/11/17 TIME: 16:39 Attending Physician Freda Amado MD Admitting Physician Freda Aamdo MD Consulting Physician Micha Raymundo MD Admitting Diagnosis 1. Weakness Discharge Diagnosis Syncope, lower extremity weakness, left upper extremity weakness, rhabdomyolysis , aortic regurgitation, myasthenia gravis, atherosclerosis of the left internal carotid artery, hyperlipidemia, hypertension, hypernatremia Procedures Pacemaker was interrogated and showed no significant arrhythmias Laboratory Item Value Date Time Total Creatine Kinase 1309 U/L H 01/11/17 0821 Total Creatine Kinase 2965 U/L H 01/10/17 0522 Total Creatine Kinase 5000 U/L H 01/09/17 1254 Total Creatine Kinase 5898 U/L H 01/09/17 0446 Total Creatine Kinase 1310 U/L H 01/08/17 1513 Triglycerides Level 173 MG/DL H 01/08/17 1513 Cholesterol Level 243 MG/DL H 01/08/17 1513 LDL Cholesterol, Calculated 172.4 H 01/08/17 1513 VLDL Cholesterol 34.6 MG/DL H 01/08/17 1513 HDL Cholesterol Direct 36 MG/DL L 01/08/17 1513 Cholesterol/HDL Ratio 6.8 RATIO H 01/08/17 1513 Thyroid Stimulating Hormone (TSH) 0.02 MIU/L L 01/08/17 1513 Sodium Level 148 MEQ/L H 01/11/17 0821 Potassium Level 4.3 MEQ/L # 01/11/17 0821 Chloride Level 106 MEQ/L 01/11/17 0821 Carbon Dioxide Level 32 MEQ/L H 01/11/17 0821 Anion Gap 10 MEQ/L 01/11/17 0821 Blood Urea Nitrogen 9.0 MG/DL 01/11/17 0821 Creatinine 0.8 MG/DL 01/11/17 0821 Glomerular Filtration Rate Calc 92 01/11/17 0821 BUN/Creatinine Ratio 11 RATIO 01/11/17 0821 Glucose Level 101 MG/DL 01/11/17 0821 Calculated Osmolality 283 MOSM/KG H 01/11/17 0821 Calcium Level 9.5 MG/DL # 01/11/17 0821 Laboratory Tests Test 01/10/17 05:22 01/11/17 08:21 White Blood Count 5.5T/MM3 (4.5-11.0) 7.1T/MM3 (4.5-11.0) Red Blood Count 3.92M/MM3 (4.50-5.90) 4.71M/MM3 (4.50-5.90) Hemoglobin 12.1GM/DL (13.5-17.5) 14.5GM/DL (13.5-17.5) Hematocrit 37.3% (41-53) 45.1% (41-53) Mean Corpuscular Volume 95.2UM3 (80-100) 95.8UM3 (80-100) Mean Corpuscular Hemoglobin 30.9UUG (26-34) 30.8UUG (26-34) Mean Corpuscular Hemoglobin Concent 32.4GM/DL (31-37) 32.2GM/DL (31-37) RDW Standard Deviation 43.3FL (36.9-50.2) 43.9FL (36.9-50.2) Platelet Count 159T/MM3 (130-400) 187T/MM3 (130-400) Mean Platelet Volume 9.3UM3 (9.4-12.4) 9.3UM3 (9.4-12.4) Immature Granulocyte % (Auto) 0.2% (0.0-0.5) 0.1% (0.0-0.5) Neutrophils (%) (Auto) 56.5% (33-66) 54.9% (33-66) Lymphocytes (%) (Auto) 30.6% (23-45) 33.6% (23-45) Monocytes (%) (Auto) 7.4% (0-9.0) 5.4% (0-9.0) Eosinophils (%) (Auto) 4.9% (0-4) 5.4% (0-4) Basophils (%) (Auto) 0.4% (0-2) 0.6% (0-2) Absolute Immature Granulocyte (auto 0.01T/MM3 (0.00-0.03) 0.01T/MM3 (0.00-0.03) Absolute Neutrophils (auto) 3.1T/MM3 (1.8-7.7) 3.9T/MM3 (1.8-7.7) Absolute Lymphocytes (auto) 1.7T/MM3 (1-4.8) 2.4T/MM3 (1-4.8) Absolute Monocytes (auto) 0.4T/MM3 (0-0.8) 0.4T/MM3 (0-0.8) Absolute Eosinophils (auto) 0.3T/MM3 (0-0.5) 0.4T/MM3 (0-0.5) Absolute Basophils (auto) 0.0T/MM3 (0-0.2) 0.0T/MM3 (0-0.2) Turbidity < 20 (0-20) < 20 (0-20) Sodium Level 145MEQ/L (134-144) 148MEQ/L (134-144) Potassium Level 3.4MEQ/L (3.6-5) 4.3MEQ/L (3.6-5) Chloride Level 107MEQ/L (98-107) 106MEQ/L (98-107) Carbon Dioxide Level 31MEQ/L (22-30) 32MEQ/L (22-30) Anion Gap 7MEQ/L (5-15) 10MEQ/L (5-15) Blood Urea Nitrogen 10.0MG/DL (9-20) 9.0MG/DL (9-20) Creatinine 0.7MG/DL (0.8-1.5) 0.8MG/DL (0.8-1.5) Glomerular Filtration Rate Calc 107 92 BUN/Creatinine Ratio 14RATIO (6-26) 11RATIO (6-26) Glucose Level 99MG/DL (75-110) 101MG/DL (75-110) Calculated Osmolality 278MOSM/KG (261-280) 283MOSM/KG (261-280) Calcium Level 8.6MG/DL (8.4-10.2) 9.5MG/DL (8.4-10.2) Total Bilirubin 0.70MG/DL (0.20-1.30) Icterus Index < 2 (0-7) < 2 (0-7) Aspartate Amino Transf (AST/SGOT) 124U/L (17-59) Alanine Aminotransferase (ALT/SGPT) 56U/L (21-72) Alkaline Phosphatase 44U/L (38-126) Total Creatine Kinase 2965U/L (55-170) 1309U/L (55-170) Total Protein 5.7G/DL (6.3-8.2) Albumin 2.9G/DL (3.5-5.0) 3.8G/DL (3.5-5.0) Globulin 2.8G/DL (2.4-3.6) Albumin/Globulin Ratio 1.0RATIO (1.1-2.2) Chemistry Specimen Hemolysis < 15 (0-25) < 15 (0-25) Phosphorus Level 3.5MG/DL (2.5-4.5) Radiology Chest x-ray showed left basilar atelectasis and/or scarring. CT head shows no evidence for intracranial mass lesion, mass effect, or midline shift. No intracranial hemorrhage. Carotid Doppler showed 50-60% stenosis in the left mid to distal internal carotid artery. 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 He doesn't think he passed out and denies falling, but his recollection of what actually occurred is not certain. He has never had a seizure. He was not incontinent of bowel/bladder. He was down on the ground for 1.5 hours, and despite trying to get up, was unable to. He mostly rested on his left arm, and now is weak on that side. He had his annual bout of "bronchitis" now those symptoms are resolved and he denies any other recent illness. He has myasthenia gravis, but denies any difficulty breathing, dysphagia, or vision abnormalities. He has chronic leg weakness, attributed to taking crestor then lipitor. He does not take ASA because of GI bleed in 2007. His returned from work around noon, and found him on the ground. He was transferred to [facility] [place] [place] ED. WBC was 13, Na was high at 147; UA was consistent with dehydration. He did receive 500 mL NS in the ED. Head CT was negative for acute infarct or hemorrhage. CXR showed left basilar atelectasis and/or scarring. EKG showed paced rhythm. Given concerns for stroke, the patient was admitted to observation status under the hospitalist service. Hospital Course 01/11/2017 Patient was admitted on 01/09/2017 after he had an apparent syncopal event while working on his lawnmower. He laid on the ground for 1-2 hours before help arrived. He was admitted and found to have left upper extremity weakness and bilateral lower extremity weakness. The patient was also found to have elevated CPK and was diagnosed with rhabdomyolysis. The patient was admitted to the medical floor and started on IV fluids. CPK was initially 1309 and peaked at around 5000 and then has been trending down and is in the 2000 range now. CPK continued to improve off of IV fluids. He is out of the dangerous range with rhabdomyolysis. We will need to continue to encourage oral fluids. Regarding the syncopal event, the etiology is not known. It does not sound typical for a stroke. However, he was found to have significant atherosclerosis and elevated lipids. He has not tolerated aspirin because of a gastric ulcer in the past. The patient will be started on Plavix 75 mg daily. This was discussed with the Dr. Raymundo who did see the patient. As part of his workup for his syncopal event he also underwent echocardiogram which showed ejection fraction of 60% and borderline LVH and mild diastolic dysfunction. He also had aortic regurg 2+. No other significant abnormalities. The patient also underwent interrogation of his pacemaker which showed no significant arrhythmias to explain his syncopal event. He was maintained on telemetry during the hospital course which showed no significant abnormalities. Regarding the patient's left arm weakness, the patient had been lying on his left side after his syncopal event. Left arm weakness did resolve by the following day. The patient could not undergo MRI of the brain to look for stroke because of his history of pacemaker. Fortunately, the left arm weakness did resolve. 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 The patient's weakness in his legs improve over the hospital course. The patient was maintained on his usual medications for myasthenia gravis. The patient's TSH was found to be suppressed at 0.02. His levo thyroxine was decreased from 150 g daily down 125 g daily. This can be followed up with his primary care provider. Regarding carotid atherosclerosis and elevated lipid panel, Dr. Raymundo recommended either initiating Questran or consider adding niacin. I will leave this up to the patient's primary care provider. Regarding hypertension, the patient's blood pressure did become quite elevated up to 195 systolic. He had forgotten to tell us that he was on a beta maryse at home. His data maryse was restarted and blood pressure did improve. He does appear to have some element of whitecoat hypertension as well. On 01/11/2017 the patient was doing well. He was eating and drinking well. He was ambulating with a walker without difficulties. Was felt that he was stable for dismissal to home with close follow-up next week. His was in agreement. He was offered home health that wanted to do outpatient PT instead and this will be scheduled. On exam he is alert and oriented 3 and in no acute distress. Chest is clear to auscultation. Cardiovascular reveals a regular rate and rhythm. Abdomen is soft and nontender. Neurologic exam reveals no focal deficits. Greater than 30 minutes of time was spent on dismissal day. Problems: (1) Rhabdomyolysis Status: Acute Assessment & Plan: Secondary to being down on concrete for extended period of time. (2) Weakness Status: Acute Assessment & Plan: R/O stroke. Possible MG exacerbation. (3) Hypernatremia Status: Acute Assessment & Plan: POA (4) Myasthenia gravis Status: Chronic (5) HTN (hypertension) Status: Chronic (6) Hypercholesteremia Status: Chronic Assessment & Plan: Cannot tolerate Crestor or Lipitor - cause severe muscle weakness (7) Hypothyroidism Status: Chronic (8) Essential tremor Status: Chronic (9) Atrial fibrillation Status: Resolved Assessment & Plan: hx of cardioversion (10) Bleeding ulcer Status: Resolved Assessment & Plan: Hx of duodenal bleeding ulcers in 2002 and 2007 - instructed not to take ASA Code Status Full Code Home Meds Active Scripts Levothyroxine Sodium (Synthroid) 125 Mcg Tablet, 125 MCG PO HS, #30 TAB Prov:FREDA AMADO MD 01/11/17 Clopidogrel Bisulfate (Plavix) 75 Mg Tablet, 75 MG PO DAILY, #30 TAB Prov:FREDA AMADO MD 01/11/17 Reported Medications Metoprolol Tartrate (Metoprolol Tartrate) 50 Mg Tablet, 25 MG PO BID, #30 TAB Take 1/2 tablet, by mouth, EVERY MORNING AND EVERY EVENING 01/10/17 Saw Earleton Fruit (Saw Earleton) 450 Mg Capsule, 900 MG PO HS 01/08/17 Lycopene (Lycopene) 10 Mg Capsule, 10 MG PO HS 01/08/17 Cholecalciferol (Vitamin D3) (Vitamin D3) 5,000 Unit Tablet, 5000 UNIT PO HS 01/08/17 Ca Carbonate/Vitamin D3/Vit K (Citracal Soft Chew) 1 Each Tab.chew, 1 TAB PO BID 01/08/17 Fish Oil/Dha/Epa (Fish Oil 1,200 mg Fish Oil) 1 Each Capsule, 1200 MG PO QID 01/08/17 Gabapentin (Gabapentin) 100 Mg Capsule, 100 MG PO BID 01/08/17 Finasteride (Proscar) 5 Mg Tablet, 5 MG PO HS 01/28/11 Pyridostigmine Ceylon (Pyridostigmine Ceylon) 60 Mg Tablet, 60 MG PO DAILY 08/16/09 Primidone (Primidone) 50 Mg Tablet, 50 MG PO BID 08/16/09 Omeprazole (Prilosec) 20 Mg Tablet.dr, 20 MG PO DAILY 08/16/09 Metoclopramide Hcl (Metoclopramide Hcl) 5 Mg Tablet, 5 MG PO HS 08/16/09 Discontinued Reported Medications Levothyroxine Sodium (Levothyroxine Sodium) 150 Mcg Tablet, 150 MCG PO HS 08/16/09 Face to Face Encounter I met with patient on the day of dismissal and discussed follow up appointments , medications, and safety plan. Discharge Disposition Discharge to home with in stable condition Copies To 1: MICHA RAYMUNDO MD; EVAN FERNANDEZ STEPHANIE L MD Jan 11, 2017 16:42
--- NOTE | 2017-01-11 17:03 | NUR ---
STATUS PT IS A&OX3. IS WITH HIM AT THIS TIME. HAS BEEN UP TO THE BR WITH WALKER, GAIT BELT AND 1 ASSIST. PT AMBULATED IN THE DEL REAL A COUPLE TIMES TODAY. PT USES THE CALL LIGHT WHEN NEED HELP.
--- NOTE | 2017-01-11 18:22 | NUR ---
BP NOTIFIED DR. OBRIEN OF BP'S CHARTED. AT 1730 PT VERY ANXIOUS TO BE DISCHARGED AND GET UP TO GO TO THE BATHROOM, THEN AFTER USING BR BP CONTINUED TO BE ELEVATED, LET PATIENT REST AND RECHECKED BP CHARTED. DR. OBRIEN OK WITH PATIENT TO DISCHARGE.
--- NOTE | 2017-01-11 18:23 | NUR ---
DISCHARGE DISCHARGE INSTRUCTIONS WERE GIVEN TO PT AND SPOUSE. DISCHARGE PACKAGE WAS SENT WITH PT TO HOME. NEW, CONTINUE, AND STOP MEDICATIONS WERE EXPLAINED TO PT AND SPOUSE, WELL, FOLLOW APPOINTMENTS. HOME MEDICATIONS WERE SENT HOME WITH PT. PT LEFT THE UNIT PER WHEELCHAIR ACCOMPANIED BY A STAFF MEMBER.
== END 2017-01-11 18:23 | disposition home or self-care (01) | DRG 557 ==
LOC: ED 14:01 → EDHOLD 16:06 → MED 16:40 → OBSVTOIN 01-09 11:30
PROVIDERS: ADMIT Hospitalist; ATTEND Internal Medicine
DX: M62.82 Rhabdomyolysis (principal); G70.01 Myasthenia gravis with (acute) exacerbation; E87.0 Hyperosmolality and hypernatremia; E03.9 Hypothyroidism, unspecified; I48.91 Unspecified atrial fibrillation; E78.00 Pure hypercholesterolemia, unspecified; G25.0 Essential tremor; I10 Essential (primary) hypertension; I65.22 Occlusion and stenosis of left carotid artery; I35.1 Nonrheumatic aortic (valve) insufficiency; K21.9 Gastro-esophageal reflux disease without esophagitis; Z79.899 Other long term (current) drug therapy; Z95.0 Presence of cardiac pacemaker
CPT/HCPCS: 36415; 80053; 80061; 80069; 81001; 81003; 82550; 82948; 84443; 84484; 85025; 85610; 85730; 93005; 93306; 99218